=== PATIENT | female | born 1940 | race Caucasian/White ===

== ENCOUNTER 2022-12-17 02:30 | Inpatient (IN) | payer MEDICARE ==
--- NOTE | 2022-12-17 03:06 | ED ---
General Adult HPI - General Chief complaint: Dizziness Stated complaint: Dizziness Time Seen by Provider: 12/17/22 02:36 Source: patient, RN notes reviewed, old records reviewed Mode of arrival: EMS Limitations: altered mental status - History of Present Illness Initial comments: 82-year-old female presents for evaluation of dizziness. The patient states that she had felt lightheaded while getting into bed. She is ambulatory with a walker. No recent fall. She denies chest pain. She does report chronic dyspnea and history of oxygen dependent COPD. She wears 2 L of home oxygen. According to halfway staff she was hypoxic and is currently wearing 5 L. She denies chest pain. Denies abdominal pain. Denies fever. No vomiting or diarrhea. No headache. Patient is somewhat of a poor historian. - Related Data Allergies Allergy/AdvReac Type Severity Reaction Status Date / Time alendronate sodium Allergy Unknown Verified 12/17/22 02:45 Penicillins Allergy Unknown Verified 12/17/22 02:45 Review of Systems ROS Statement: Those systems with pertinent positive or pertinent negative responses have been documented in the HPI. ROS Other: All systems not noted in ROS Statement are negative. Past Medical History Past Medical History: COPD, Dementia, Hyperlipidemia, Rheumatoid Arthritis (RA) Past Surgical History: Hysterectomy, Joint Replacement Additional Past Surgical History / Comment(s): R knee Past Psychological History: Depression Smoking Status: Former smoker Past Alcohol Use History: None Reported Past Drug Use History: None Reported General Exam General appearance: alert, in no apparent distress Head exam: Present: atraumatic, normocephalic Eye exam: Present: normal appearance, PERRL ENT exam: Present: normal exam Neck exam: Present: normal inspection. Absent: tenderness, meningismus Respiratory exam: Present: rhonchi, decreased breath sounds. Absent: respiratory distress Cardiovascular Exam: Present: regular rate, normal rhythm GI/Abdominal exam: Present: soft. Absent: distended, tenderness, guarding Extremities exam: Present: normal inspection Neurological exam: Present: alert. Absent: motor sensory deficit Psychiatric exam: Present: normal affect, normal mood Skin exam: Present: warm, dry, intact. Absent: cyanosis, diaphoretic Course Vital Signs 12/17/22 12/17/22 02:38 03:14 Temperature 98.2 F Pulse Rate 57 L Respiratory 16 Rate Blood Pressure 114/62 O2 Sat by Pulse 90 L Oximetry Medical Decision Making - Medical Decision Making Was pt. sent in by a medical professional or institution ([facility], [facility], urgent care, hospital, or halfway...) When possible be specific @ -No Did you speak to anyone other than the patient for history (EMS, parent, family, police, friend...)? What history was obtained from this source @ -No Did you review nursing and triage notes (agree or disagree)? Why? @ -I reviewed and agree with nursing and triage notes Were old charts reviewed (outside hosp., previous admission, EMS record, old EKG, old radiological studies, urgent care reports/EKG's, halfway records)? Report findings @ -[No old charts available for review Differential Diagnosis (chest pain, altered mental status, abdominal pain women, abdominal pain men, vaginal bleeding, weakness, fever, dyspnea, syncope, headache, dizziness, GI bleed, back pain, seizure, CVA, palpatations, mental health, musculoskeletal)? @ -Differential Dyspnea: Coronary syndrome, arrhythmia, tamponade, asthma, COPD, pulmonary embolism, pneumonia, pneumothorax, pulmonary effusion, anaphylaxis, diabetic ketoacidosis, flailed chest, pulmonary contusion, diaphragmatic rupture, anemia, neuromuscular, this is not meant to be an all-inclusive list. EKG interpreted by me (3pts min.). @ -EKG: Sinus bradycardia rate of 56, MI interval 172, QRS duration 110, QTC 455, no ST segment elevation. X-rays interpreted by me (1pt min.). @Chest x-ray showing predominantly left lower lobe opacity, concern for pneumonia CT interpreted by me (1pt min.). @ -None done U/S interpreted by me (1pt. min.). @ -None done What testing was considered but not performed or refused? (CT, X-rays, U/S, labs)? Why? @ -None What meds were considered but not given or refused? Why? @ -None Did you discuss the management of the patient with other professionals (professionals i.e. [facility], [facility], lab, RT, psych nurse, manager social media, lawyer real estate, teacher, commanding officer motorized squad, case folder)? Give summary @ -[Dr. Santana Was smoking cessation discussed for >3mins.? @ -No Was critical care preformed (if so, how long)? @ -No Were there social determinants of health that impacted care today? How? (Homelessness, low income, unemployed, alcoholism, drug addiction, transportation, low edu. Level, literacy, decrease access to med. care, correction, rehab)? @ -No Was there de-escalation of care discussed even if they declined (Discuss DNR or withdrawal of care, Hospice)? DNR status @ -[DO NOT RESUSCITATE What co-morbidities impacted this encounter? (DM, HTN, Smoking, COPD, CAD, Can cer, CVA, ARF, Chemo, Hep., AIDS, mental health diagnosis, sleep apnea, morbid obesity)? @ -[COPD, hypertension Was patient admitted / discharged? Hospital course, mention meds given and route, prescriptions, significant lab abnormalities, going to OR and other pertinent info. @ -[82-year-old female presenting with dizziness, hypoxia. Patient has bilateral rhonchi on auscultation she has an increase in oxygen demand. X-ray is interpreted as possible CHF by suspect this is more consistent with developing ammonia. Patient started on antibiotics, blood cultures obtained. She's also given steroids, albuterol, Atrovent. She has a minor leukocytosis. She has a negative troponin, negative BNP. Patient is a DO NOT RESUSCITATE Undiagnosed new problem with uncertain prognosis? @ -No Drug Therapy requiring intensive monitoring for toxicity (Heparin, Nitro, Insulin, Cardizem)? @ -No Were any procedures done? @ -No Diagnosis/symptom? @ Pneumonia, COPD Acute, or Chronic, or Acute on Chronic? @ -Acute on chronic Uncomplicated (without systemic symptoms) or Complicated (systemic symptoms)? @ -[Complicated Side effects of treatment? @ -No Exacerbation, Progression, or Severe Exacerbation? @ -No Poses a threat to life or bodily function? How? (Chest pain, USA, OR, pneumonia, PE, COPD, DKA, ARF, appy, cholecystitis, CVA, Diverticulitis, Homicidal, Suicidal, threat to staff... and all critical care pts) @ -[Yes, pneumonia, sepsis - Lab Data Result diagrams: 12/17/22 03:08 12/17/22 03:08 Lab Results 12/17/22 12/17/22 12/17/22 Range/Units 03:08 03:08 03:08 WBC 11.2 H (3.8-10.6) k/uL RBC 3.82 (3.80-5.40) m/uL Hgb 11.7 (11.4-16.0) gm/dL Hct 36.6 (34.0-46.0) % MCV 95.9 (80.0-100.0) fL MCH 30.6 (25.0-35.0) pg MCHC 31.9 (31.0-37.0) g/dL RDW 14.9 (11.5-15.5) % Plt Count 340 (150-450) k/uL MPV 7.7 Neutrophils % 63 % Lymphocytes % 12 % Monocytes % 12 % Eosinophils % 10 % Basophils % 1 % Neutrophils # 7.0 (1.3-7.7) k/uL Lymphocytes # 1.3 (1.0-4.8) k/uL Monocytes # 1.3 H (0-1.0) k/uL Eosinophils # 1.1 H (0-0.7) k/uL Basophils # 0.1 (0-0.2) k/uL PT 10.7 (9.0-12.0) sec INR 1.0 (<1.2) APTT 20.2 L (22.0-30.0) sec VBG pH (7.31-7.41) VBG pCO2 (37-51) mmHg VBG HCO3 (24-28) mmol/L Sodium 136 L (137-145) mmol/L Potassium 3.3 L (3.5-5.1) mmol/L Chloride 98 (98-107) mmol/L Carbon Dioxide 31 H (22-30) mmol/L Anion Gap 7 mmol/L BUN 22 H (7-17) mg/dL Creatinine 0.89 (0.52-1.04) mg/dL Est GFR (CKD-EPI)AfAm 71 (>60 ml/min/1.73 sqM) Est GFR (CKD-EPI)NonAf 61 (>60 ml/min/1.73 sqM) Glucose 104 H (74-99) mg/dL Plasma Lactic Acid Tha (0.7-2.0) mmol/L Calcium 8.7 (8.4-10.2) mg/dL Magnesium 2.1 (1.6-2.3) mg/dL Total Bilirubin 0.4 (0.2-1.3) mg/dL AST 26 (14-36) U/L ALT 22 (4-34) U/L Alkaline Phosphatase 107 (38-126) U/L Troponin I (0.000-0.034) ng/mL NT-Pro-B Natriuret Pep 321 pg/mL Total Protein 6.1 L (6.3-8.2) g/dL Albumin 3.1 L (3.5-5.0) g/dL 12/17/22 12/17/22 12/17/22 Range/Units 03:08 03:08 03:09 WBC (3.8-10.6) k/uL RBC (3.80-5.40) m/uL Hgb (11.4-16.0) gm/dL Hct (34.0-46.0) % MCV (80.0-100.0) fL MCH (25.0-35.0) pg MCHC (31.0-37.0) g/dL RDW (11.5-15.5) % Plt Count (150-450) k/uL MPV Neutrophils % % Lymphocytes % % Monocytes % % Eosinophils % % Basophils % % Neutrophils # (1.3-7.7) k/uL Lymphocytes # (1.0-4.8) k/uL Monocytes # (0-1.0) k/uL Eosinophils # (0-0.7) k/uL Basophils # (0-0.2) k/uL PT (9.0-12.0) sec INR (<1.2) APTT (22.0-30.0) sec VBG pH 7.41 (7.31-7.41) VBG pCO2 49 (37-51) mmHg VBG HCO3 30 H (24-28) mmol/L Sodium (137-145) mmol/L Potassium (3.5-5.1) mmol/L Chloride (98-107) mmol/L Carbon Dioxide (22-30) mmol/L Anion Gap mmol/L BUN (7-17) mg/dL Creatinine (0.52-1.04) mg/dL Est GFR (CKD-EPI)AfAm (>60 ml/min/1.73 sqM) Est GFR (CKD-EPI)NonAf (>60 ml/min/1.73 sqM) Glucose (74-99) mg/dL Plasma Lactic Acid Tha 1.5 (0.7-2.0) mmol/L Calcium (8.4-10.2) mg/dL Magnesium (1.6-2.3) mg/dL Total Bilirubin (0.2-1.3) mg/dL AST (14-36) U/L ALT (4-34) U/L Alkaline Phosphatase (38-126) U/L Troponin I <0.012 (0.000-0.034) ng/mL NT-Pro-B Natriuret Pep pg/mL Total Protein (6.3-8.2) g/dL Albumin (3.5-5.0) g/dL Disposition Clinical Impression: COPD (chronic obstructive pulmonary disease), Pneumonia Disposition: ADMITTED IP TO THIS HOSP Condition: Stable Is patient prescribed a controlled substance at d/c from ED?: No Referrals: None,Stated [Primary Care Provider] - 1-2 days Time of Disposition: 05:02
[2022-12-17 03:27] LABS: VBG PH 7.41 (7.31-7.41)
[2022-12-17 03:36] LABS: ALT 22 U/L (4-34); AST 26 U/L (14-36); African American GFR (CKD) 71 (>60 ml/min/1.73 sqM); Albumin 3.1 g/dL (3.5-5.0); Alkaline Phosphatase 107 U/L (38-126); Anion Gap 7 mmol/L; Blood Urea Nitrogen 22 mg/dL (7-17); Calcium 8.7 mg/dL (8.4-10.2); Carbon Dioxide 31 mmol/L (22-30); Chloride 98 mmol/L (98-107); Glucose 104 mg/dL (74-99); Magnesium 2.1 mg/dL (1.6-2.3); Non-African American GFR(CKD) 61 (>60 ml/min/1.73 sqM); Potassium 3.3 mmol/L (3.5-5.1); Sodium 136 mmol/L (137-145); Total Bilirubin 0.4 mg/dL (0.2-1.3); Total Protein 6.1 g/dL (6.3-8.2)
[2022-12-17 03:44] LABS: NT-Pro-B-Type Natriuretic Pept 321 pg/mL
[2022-12-17 03:59] LABS: Basophils # (A) 0.1 k/uL (0-0.2); Basophils % (A) 1 %; Eosinophils # (A) 1.1 k/uL (0-0.7); Eosinophils % (A) 10 %; HCT 36.6 % (34.0-46.0); HGB 11.7 gm/dL (11.4-16.0); Lymphocytes # (A) 1.3 k/uL (1.0-4.8); Lymphocytes % (A) 12 %; MCH 30.6 pg (25.0-35.0); MCHC 31.9 g/dL (31.0-37.0); MCV 95.9 fL (80.0-100.0); Mean Platelet Volume 7.7; Monocytes # (A) 1.3 k/uL (0-1.0); Monocytes % (A) 12 %; Neutrophils % (A) 63 %; Platelet Count 340 k/uL (150-450); RBC 3.82 m/uL (3.80-5.40); RDW 14.9 % (11.5-15.5); WBC 11.2 k/uL (3.8-10.6)
[2022-12-17 04:15] LABS: Prothrombin Time 10.7 sec (9.0-12.0)
[2022-12-17 04:23] LABS: Partial Thromboplastin Time 20.2 sec (22.0-30.0)
--- NOTE | 2022-12-17 04:26 | XR ---
EXAM: XR Chest, 2 Views CLINICAL HISTORY: ITS.REASON XR Reason: Weakness TECHNIQUE: Frontal and lateral views of the chest. COMPARISON: No relevant prior studies available. IMPRESSION: Cardiomegaly. Mild vascular congestion. Bibasilar opacities. Possible trace left effusion
[2022-12-17] MEDS ORDERED: AZITHROMYCIN 500 MG in SODIUM CHLORIDE 0.9% 250 ML IVPB STA (04:49)
[2022-12-17] MEDS ORDERED: ACETAMINOPHEN TAB 325 MG TAB PO PRN (04:58)
[2022-12-17] MEDS ORDERED: NALOXONE 0.4 MG/ML 1 ML VIAL IV PRN (04:58)
[2022-12-17] MEDS ORDERED: IPRATROPIUM-ALBUTEROL 3 ML NEB INHALATION STA (04:58)
[2022-12-17] MEDS ORDERED: ALBUTEROL NEBULIZED 2.5 MG/3 ML INHALATION STA (04:58)
--- NOTE | 2022-12-17 06:42 | P.HPIM ---
History of Present Illness H&P Date: 12/17/22 Chief Complaint: hypoxemia 82 year old female with chronic hypoxic respiratory failure denies history of COPD , or chf . denies taking any meds, denies using any inhalers she is at a correction, today her RN found her weak and dizzy, called EMS and brought her to the hospital as her oxygen was low on her regular 2 L NC, and required 5 L NC. she reports coughing for few days , denies any phlegm or hemoptysis she denies fever, chills, chest pain , nausea vomiting, changes in urinary or bowel habits, abd pain , falls . patient provides very limited history , but claims to be healthy and does not take any meds. she uses a walker to ambulate denies smoking drugs or alcohol review of systems Pertinent positives as noted in HPI. All other systems were reviewed and are negative on exam Constitutional: No acute distress, conversant, pleasant Eyes: Anicteric sclerae, moist conjunctiva, Pupils equal round reactive to light ENMT: NC/AT Oropharynx clear, no erythema, or exudates Neck: Supple, no masses, or JVD No carotid bruits No thyromegaly Lungs: good breath sounds , basal rales , no wheezing Clear to percussion Normal respiratory effort, no accessory muscle use Cardiovascular: Heart regular in rate and rhythm, No murmurs, gallops, or rubs No peripheral edema Abdominal: Soft Nontender, no guarding, rebound or rigidity Abdomen moving with respiration Normoactive bowel sounds No hepatomegaly, No splenomegaly No palpable mass No abdominal wall hernia noted Skin: Normal temperature, tone, texture, turgor Extremities: No digital cyanosis No clubbing Pedal pulses intact and symmetrical Radial pulses intact and symmetrical No calf tenderness Psychiatric: Alert and oriented to person, place Neuro Muscles Strength 4/5 in all 4 extremities Sensation to light touch grossly present throughout Cranial nerves II-XII grossly intact Lymphatics: no palpable cervical or supraclavicular lymph nodes Past Medical History Past Medical History: COPD, Dementia, Hyperlipidemia, Rheumatoid Arthritis (RA) Past Surgical History: Hysterectomy, Joint Replacement Additional Past Surgical History / Comment(s): R knee Past Psychological History: Depression Smoking Status: Former smoker Past Alcohol Use History: None Reported Past Drug Use History: None Reported Medications and Allergies Allergies Allergy/AdvReac Type Severity Reaction Status Date / Time alendronate sodium Allergy Unknown Verified 12/17/22 02:45 Penicillins Allergy Unknown Verified 12/17/22 02:45 Physical Exam Vitals: Vital Signs Temp Pulse Resp BP Pulse Ox 12/17/22 06:04 66 12/17/22 05:49 63 91 L 12/17/22 05:17 98 F 68 24 111/66 90 L 12/17/22 03:14 98.2 F 12/17/22 02:38 57 L 16 114/62 90 L Intake and Output 12/16/22 12/16/22 12/17/22 14:59 22:59 06:59 Other: Weight 90.718 kg Results CBC & Chem 7: 12/17/22 03:08 12/17/22 03:08 Labs: Abnormal Lab Results - Last 24 Hours (Table) 12/17/22 12/17/22 12/17/22 Range/Units 03:08 03:08 03:08 WBC 11.2 H (3.8-10.6) k/uL Monocytes # 1.3 H (0-1.0) k/uL Eosinophils # 1.1 H (0-0.7) k/uL APTT 20.2 L (22.0-30.0) sec VBG HCO3 (24-28) mmol/L Sodium 136 L (137-145) mmol/L Potassium 3.3 L (3.5-5.1) mmol/L Carbon Dioxide 31 H (22-30) mmol/L BUN 22 H (7-17) mg/dL Glucose 104 H (74-99) mg/dL Total Protein 6.1 L (6.3-8.2) g/dL Albumin 3.1 L (3.5-5.0) g/dL 12/17/22 Range/Units 03:09 WBC (3.8-10.6) k/uL Monocytes # (0-1.0) k/uL Eosinophils # (0-0.7) k/uL APTT (22.0-30.0) sec VBG HCO3 30 H (24-28) mmol/L Sodium (137-145) mmol/L Potassium (3.5-5.1) mmol/L Carbon Dioxide (22-30) mmol/L BUN (7-17) mg/dL Glucose (74-99) mg/dL Total Protein (6.3-8.2) g/dL Albumin (3.5-5.0) g/dL Assessment and Plan Assessment: 10o year old female brought in due to being dizzy and hypoxic , I discussed the case with ED doc and I accepte dthe admission for acute community acquired pneumonia with hypoxemia with anticipated length of stay > 2 midnights acute hypoxic respiratory failure acute Community acquired penumonia CXR showed bilateral basal opacities WBC elevated 11.2 no fever follow up cultures rocephin 2 gms IVPB daily azithromycin 250 mg po daily (s/p one time 500 mg ) tylenol for fever supplemental oxygen as needed Pro BNP unremarkable Trops negative hypokalemia K 3.3 , replace and follow up levels renal fucntion BUN 22 , cr 0.89 No code DVT PPX heparin sc tid
[2022-12-17] MEDS ORDERED: POTASSIUM CHLORIDE ER 20 MEQ TAB.ER PO STA (06:51)
[2022-12-17] MEDS ORDERED: methylPREDNISolone SOD SUCCI 125 MG/2 ML VIAL IV SCH (08:00)
[2022-12-17] MEDS: HEPARIN SODIUM,PORCINE/PF 5,000 UNIT/0.5 ML SYRINGE SQ SCH ×3 (08:19→23:47)
--- NOTE | 2022-12-17 10:48 | CA ---
Transthoracic Echo Report Name: Ros Sweeney Age: 82 Gender: F : 1940 Exam Date: 12/17/2022 09:34 Exam Location: [facility] Ht (in): 67 Wt (lb): 200 Ordering Physician: eF Perry MD Attending/Referring Phys: Client Experience Manager Jason Fonseca Procedure CPT: Indications: Cardiomegaly Cardiac Hx: Technical Quality: Fair Contrast 1: Total Dose (mL): Contrast 2: Total Dose (mL): MEASUREMENTS (Male / Female) Normal Values 2D ECHO LV Diastolic Diameter PLAX 5.7 cm 4.2 - 5.9 / 3.9 - 5.3 cm LV Systolic Diameter PLAX 3.0 cm IVS Diastolic Thickness 1.1 cm 0.6 - 1.0 / 0.6 - 0.9 cm LVPW Diastolic Thickness 1.5 cm 0.6 - 1.0 / 0.6 - 0.9 cm LV Relative Wall Thickness 0.4 RV Internal Dim ED PLAX 3.4 cm LVOT Diameter 2.0 cm Aortic Root Diameter 2.5 cm LA Systolic Diameter LX 3.4 cm 3.0 - 4.0 / 2.7 - 3.8 cm LV Diastolic Volume MOD BP 63.9 cm??? 67 - 155 / 56 - 104 cm??? LV Systolic Volume MOD BP 21.9 cm??? 22 - 58 / 19 - 49 cm??? LV Ejection Fraction MOD BP 65.7 % >= 55 % LV Cardiac Index MOD BP 1320.1 cm???/min???m??? LV Diastolic Volume MOD 4C 71.5 cm??? LV Systolic Volume MOD 4C 26.6 cm??? LV Ejection Fraction MOD 4C 62.9 % LV Cardiac Index MOD 4C 1413.5 cm???/min???m??? LV Diastolic Length 4C 8.2 cm LV Systolic Length 4C 7.0 cm LV Diastolic Volume MOD 2C 50.9 cm??? LV Systolic Volume MOD 2C 17.9 cm??? LV Ejection Fraction MOD 2C 64.8 % LV Cardiac Index MOD 2C 1037.0 cm???/min???m??? LV Diastolic Length 2C 7.2 cm LV Systolic Length 2C 6.6 cm LA Volume 39.6 cm??? 18 - 58 / 22 - 52 cm??? Ascending Aorta Diameter 2.9 cm DOPPLER AV Peak Velocity 181.2 cm/s AV Peak Gradient 13.1 mmHg AI Peak Velocity 348.9 cm/s AI Peak Gradient 48.7 mmHg AI Pressure Half Time 542.3 ms LVOT Peak Velocity 113.6 cm/s LVOT Peak Gradient 5.2 mmHg AV Area Cont Eq pk 1.9 cm??? MV Peak Velocity 148.9 cm/s MV Peak Gradient 8.9 mmHg MV Mean Velocity 63.4 cm/s MV Mean Gradient 2.1 mmHg MV Velocity Time Integral 51.1 cm MR Peak Velocity 486.8 cm/s MR Peak Gradient 94.8 mmHg Mitral E Point Velocity 82.3 cm/s Mitral A Point Velocity 141.0 cm/s Mitral E to A Ratio 0.6 MV Deceleration Time 242.5 ms MV E' Velocity 6.4 cm/s Mitral E to MV E' Ratio 12.8 TR Peak Velocity 283.9 cm/s TR Peak Gradient 32.2 mmHg Right Ventricular Systolic Press 37.2 mmHg PV Peak Velocity 102.5 cm/s PV Peak Gradient 4.2 mmHg FINDINGS Left Ventricle Normal left ventricular wall motion. Left ventricular cavity size normal. Left ventricular ejection fraction is estimated at 55-60 %. Mildly increased left ventricular wall thickness. Right Ventricle Normal right ventricular size and function. Right Atrium Mild right atrial dilatation. Left Atrium Mildly increased left atrial area. Mitral Valve Structurally normal mitral valve. Mild MR. Aortic Valve Aortic valve not well visualized. Mild AI. No aortic stenosis. Tricuspid Valve Tricuspid valve not well visualized. Mild TR. Pulmonic Valve Pulmonic valve not well visualized. No pulmonic regurgitation. Pericardium Normal pericardium. Aorta Normal size aortic root and proximal ascending aorta. CONCLUSIONS Technically difficult study. Normal left ventricle size and systolic function Mild mitral, aortic and tricuspid regurgitation with mild pulmonary hypertension Previewed by: Dr. Nikia Calixto MD (Electronically Signed) Final Date: 17 December 2022 10:47
[2022-12-17] MEDS ORDERED: IPRATROPIUM-ALBUTEROL 3 ML NEB INHALATION PRN (11:04)
--- NOTE | 2022-12-17 11:04 | P.CNPUL ---
History of Present Illness Consult date: 12/17/22 Requesting physician: Keny Seth Reason for consult: dyspnea, cough, pneumonia, abnormal CXR/CT Chief complaint: Cough and shortness of breath. History of present illness: Pulmonary consult dated 12/17/2022. 82-year-old female who was seen in the emergency department, on December 17, with complaints of dizziness, and mental status changes. She apparently felt lightheaded, and just wasn't feeling herself. She apparently does wear oxygen at 2 L, at the assisted living home that she resides at. The patient was evaluated in the emergency room, and was thought to possibly have pneumonia. She's currently on 5 L of oxygen. She's not receiving any IV fluids. Her primary care provider is Dr. Keny Seth. The patient is not a particularly good historian. She apparently has a history of COPD, dementia, hyperlipidemia, and rheumatoid arthritis, as well as depression. She was a former smoker. White count 11.2, hemoglobin 11.7, hematocrit 36.6, with a normal platelet count. Venous blood gas shows a pCO2 of 49, and a pH is 7.41. Sodium 136, potassium 3.3, chlorides 98, CO2 31, BUN 22, creatinine 0.89. N-terminal proBNP is 321. Troponin was normal. Chest x-ray shows some bibasilar opacities. The chest x- ray in my opinion could be consistent with either pneumonia and/or mild fluid overload. The patient was started on azithromycin and Rocephin. A pro- calcitonin level was only. Review of Systems REVIEW OF SYSTEMS: CONSTITUTIONAL: Weakness, dizziness, lightheadedness. NEUROLOGIC: Mental status changes. HEENT: [ Negative.] CARDIAC: [Negative.] PULMONARY: Cough and shortness of breath. GI: [Negative.] : [Negative.] RHEUMATOLOGIC: [ Negative.] IMMUNOLOGIC: [ Negative.] ENDOCRINE: [Negative. ] DERMATOLOGIC: [Negative.] Past Medical History Past Medical History: COPD, Dementia, Hyperlipidemia, Rheumatoid Arthritis (RA) History of Any Multi-Drug Resistant Organisms: None Reported Past Surgical History: Hysterectomy, Joint Replacement Additional Past Surgical History / Comment(s): R knee Past Anesthesia/Blood Transfusion Reactions: No Reported Reaction Past Psychological History: Depression Smoking Status: Former smoker Past Alcohol Use History: None Reported Past Drug Use History: None Reported Medications and Allergies Allergies Allergy/AdvReac Type Severity Reaction Status Date / Time alendronate sodium Allergy Unknown Verified 12/17/22 02:45 Penicillins Allergy Unknown Verified 12/17/22 02:45 Physical Exam Osteopathic Statement: *. No significant issues noted on an osteopathic struct ural exam other than those noted in the History and Physical/Consult. Vitals: Vital Signs Temp Pulse Pulse Resp BP BP Pulse Ox 12/17/22 07:59 74 20 124/64 90 L 12/17/22 07:10 91.0 F L 67 18 87/53 91 L 12/17/22 06:04 66 12/17/22 05:49 63 91 L 12/17/22 05:17 98 F 68 24 111/66 90 L 12/17/22 03:14 98.2 F 12/17/22 02:38 57 L 16 114/62 90 L Intake and Output 12/16/22 12/17/22 12/17/22 22:59 06:59 14:59 Other: Voiding Method Toilet Diaper # Voids 1 Weight 90.718 kg No acute distress, poor historian, currently on oxygen at 5 L. HEENT examination is grossly unremarkable. Neck supple. Full range of motion. No adenopathy thyromegaly or neck vein distention. Cardiovascular examination reveals regular rhythm rate. S1-S2 normal. No S3 or S4. No discernible murmur noted. Heart rate 74 bpm. Lungs reveal scattered bilateral rhonchi. No wheezes. No crackles. Breath sounds equal. Saturations are in the low 90s, on 5 L. Abdomen soft bowel sounds are heard. No masses or tenderness. Extremities are intact. No cyanosis clubbing or edema. Skin is without rash or lesion. Neurologic examination is brief but nonfocal. Results - Laboratory Findings CBC and BMP: 12/17/22 03:08 12/17/22 03:08 PT/INR, D-dimer PT 10.7 sec (9.0-12.0) 12/17/22 03:08 INR 1.0 (<1.2) 12/17/22 03:08 Abnormal lab findings: Abnormal Labs 12/17/22 12/17/22 12/17/22 03:08 03:08 03:08 WBC 11.2 H Monocytes # 1.3 H Eosinophils # 1.1 H APTT 20.2 L VBG HCO3 Sodium 136 L Potassium 3.3 L Carbon Dioxide 31 H BUN 22 H Glucose 104 H Total Protein 6.1 L Albumin 3.1 L 12/17/22 03:09 WBC Monocytes # Eosinophils # APTT VBG HCO3 30 H Sodium Potassium Carbon Dioxide BUN Glucose Total Protein Albumin - Diagnostic Findings Chest x-ray: image reviewed Assessment and Plan Assessment: Lightheadedness, dizziness, cough, and shortness of breath, possibly related to pneumonia. Vague history of COPD. Prior history of tobacco use. Chronic hypoxemic respiratory failure, on home O2 at 2 L. History of dementia. History of hyperlipidemia. History of rheumatoid arthritis. History of depression. Plan: Plan dated 12/17/2022. The patient is seen, interviewed, and examined. Unfortunately, the patient is not a particularly good historian. Most of the information is gleaned from the ER cheo. The patient was started on azithromycin and Rocephin for possible pneumonia. A pro-calcitonin level has been ordered. I will as some breathing treatments. The patient's on oxygen at 5 L. Prognosis is guarded. She is a DO NOT RESUSCITATE patient. Time with Patient: Greater than 30
[2022-12-17] MEDS: IPRATROPIUM-ALBUTEROL 3 ML NEB INHALATION SCH ×3 (12:45→21:30)
[2022-12-17 17:31] LABS: Appearance,Urine Clear (Clear); Bilirubin,Urine Negative (Negative); Blood,Urine Negative (Negative); Color,Urine Yellow; Glucose,Urine (UA) Negative (Negative); Ketones,Urine Negative (Negative); Leukocyte Esterase,Urine Trace (Negative); Nitrite,Urine Negative (Negative); PH, Urine 5.5 (5.0-8.0); Protein,Urine Trace (Negative); Urobilinogen,Urine <2.0 mg/dL (<2.0)
[2022-12-17 17:58] LABS: WBC,Urine 7 /hpf (0-5)
[2022-12-17 17:59] LABS: RBC,Urine 0 /hpf (0-5); Squamous Epithelial Cell,Urine 2 /hpf (0-4)
[2022-12-17 18:00] LABS: Bacteria,Urine Few /hpf; Mucus,Urine Few /hpf
[2022-12-18] MEDS ORDERED: QUEtiapine 25 MG TAB PO STA (03:38)
[2022-12-18] MEDS ORDERED: FUROSEMIDE 10 MG/ML 4 ML VIAL IV STA (08:49)
[2022-12-18] MEDS: HEPARIN SODIUM,PORCINE/PF 5,000 UNIT/0.5 ML SYRINGE SQ SCH ×3 (08:58→23:24)
[2022-12-18] MEDS ORDERED: AZITHROMYCIN 250 MG TAB PO SCH (09:00)
[2022-12-18] MEDS: IPRATROPIUM-ALBUTEROL 3 ML NEB INHALATION SCH ×4 (09:50→21:44)
--- NOTE | 2022-12-18 13:38 | P.PN ---
Subjective Progress Note Date: 12/18/22 82-year-old female who was seen in the emergency department, on December 17, with complaints of dizziness, and mental status changes. She apparently felt lightheaded, and just wasn't feeling herself. She apparently does wear oxygen at 2 L, at the assisted living home that she resides at. The patient was ev aluated in the emergency room, and was thought to possibly have pneumonia. She's currently on 5 L of oxygen. She's not receiving any IV fluids. Her primary care provider is Dr. Keny Seth. The patient is not a particularly good historian. She apparently has a history of COPD, dementia, hyperlipidemia, and rheumatoid arthritis, as well as depression. She was a former smoker. White count 11.2, hemoglobin 11.7, hematocrit 36.6, with a normal platelet count. Venous blood gas shows a pCO2 of 49, and a pH is 7.41. Sodium 136, potassium 3.3, chlorides 98, CO2 31, BUN 22, creatinine 0.89. N-terminal proBNP is 321. Troponin was normal. Chest x-ray shows some bibasilar opacities. The chest x- ray in my opinion could be consistent with either pneumonia and/or mild fluid overload. The patient was started on azithromycin and Rocephin. A pro- calcitonin level was only. The patient is seen today 12/18/2022 in follow-up on the regular medical floor. She is maintaining O2 saturations in the 90s on 3 L/m per nasal cannula. Still with some scattered rhonchi. Blood culture reveals no growth to date. Pro- calcitonin 0.09. Currently on ceftriaxone and azithromycin. Continued on DuoNeb inhalations. Heparin for DVT prophylaxis. Objective - Vital Signs Vital signs: Vital Signs Temp 98.6 F 12/18/22 07:05 Pulse 82 12/18/22 13:02 Resp 20 12/18/22 07:05 BP 94/58 12/18/22 07:05 Pulse Ox 93 L 12/18/22 09:50 FiO2 Intake & Output 12/17/22 12/18/22 12/18/22 18:59 06:59 18:59 Output Total 2150 Balance -2150 Output: Urine 2150 Other: Voiding Method Toilet Toilet Toilet Diaper Diaper Diaper # Voids 2 2 1 # Bowel Movements 1 - Exam GENERAL EXAM: Alert, doesn't 82-year-old female, on 3 L nasal cannula, comfort able in no apparent distress. HEAD: Normocephalic. EYES: Normal reaction of pupils, equal size. NOSE: Clear with pink turbinates. THROAT: No erythema or exudates. NECK: No masses, no JVD. CHEST: No chest wall deformity. LUNGS: Equal air entry with bilateral scattered rhonchi. CVS: S1 and S2 normal with no audible murmur, regular rhythm. ABDOMEN: No hepatosplenomegaly, normal bowel sounds, no guarding or rigidity. SPINE: No scoliosis or deformity SKIN: No rashes CENTRAL NERVOUS SYSTEM: No focal deficits, tone is normal in all 4 extremities. EXTREMITIES: There is no peripheral edema. No clubbing, no cyanosis. Peripheral pulses are intact. - Labs CBC & Chem 7: 12/17/22 03:08 12/17/22 03:08 Labs: Abnormal Lab Results - Last 24 Hours (Table) 12/17/22 Range/Units 02:50 Urine Protein Trace H (Negative) Ur Leukocyte Esterase Trace H (Negative) Urine WBC 7 H (0-5) /hpf Urine Bacteria Few H (None) /hpf Urine Mucus Few H (None) /hpf Microbiology - Last 24 Hours (Table) 12/17/22 03:00 Blood Culture - Preliminary Blood 12/17/22 02:45 Blood Culture - Preliminary Blood Assessment and Plan Assessment: Lightheadedness, dizziness, cough, and shortness of breath, possibly related to bronchitis. Procalcitonin 0.09. Antibiotics discontinued. Vague history of COPD. Prior history of tobacco use. Chronic hypoxemic respiratory failure, on home O2 at 2 L. History of dementia. History of hyperlipidemia. History of rheumatoid arthritis. History of depression. Plan: The patient was seen and evaluated Medications and labs reviewed Procalcitonin within normal limits Antibiotics discontinued Currently stable and on 3 L Continue bronchodilators We will continue to follow I have personally seen and examined the patient, performed the documentation and the assessment and plan as written. Number of minutes spent on the visit: 10.
--- NOTE | 2022-12-18 14:58 | P.PN ---
Subjective Progress Note Date: 12/18/22 Patient reports improvement in breathing today. Pro-calcitonin is 0.09. Gen: awake, alert HEENT: normocephalic, atraumatic, good hearing acuity, moist mucous membranes Resp: good air exchange, breathing comfortably with no accessory muscle use CVS: good distal perfusion x 4, GI: soft, NTTP, ND : no SPT, no CVAT, costello catheter not present MSK: no pitting edema, no clubbing Neuro: non-focal, moving all extremities Psych: cooperative, euthymic mood Hospital course: 82-year-old woman with medical history of chronic hypoxic respiratory failure on 2 L of oxygen presented for evaluation of dyspnea, generalized weakness. Patient is a poor historian due to underlying poor insight into medical care, and is a long-term care resident. In the emergency room, patient was afebrile, 114/62, heart rate 57, 90% on 5 L nasal cannula. CBC demonstrated leukocytosis to 11.2, otherwise unremarkable. Basic metabolic panel showed hyponatremia to 136, hypokalemia to 3.3, otherwise unremarkable. Liver function tests showed low total albumin of 3.1 and protein of 6.1. UA shows trace protein, trace leukocyte esterase, 7 white blood cells, few bacteria, few mucus. Chest x-ray showed cardiomegaly with bilateral increased pulmonary vascularity, with possible pneumonia in the left lower lobe. EKG shows sinus bradycardia with sinus arrhythmia, left axis deviation, no signs of ischemia. Case discussed with emergency room N decision was made to admit the patient to the hospital for further evaluation. Assessment: Acute on chronic hypoxemic respiratory failure Suspected volume overload, diastolic heart failure Hypokalemia Plan: Today, patient was afebrile, 107/72, heart rate 99, 99% on 3 L nasal cannula No new lab work to review Case discussed with pulmonology, pro-calcitonin was 0.09, discontinue antibiotics Patient was given dose of 40 mg IV Lasix once today Blood cultures reviewed, no growth to date Pulmonology added nebulizers, Simcor Patient is a no code Objective - Vital Signs Vital signs: Vital Signs Temp 98.3 F 12/18/22 13:20 Pulse 99 12/18/22 13:20 Resp 18 12/18/22 13:20 BP 107/72 12/18/22 13:20 Pulse Ox 99 12/18/22 13:20 FiO2 Intake & Output 12/17/22 12/18/22 12/18/22 18:59 06:59 18:59 Output Total 2150 Balance -2149 Output: Urine 0 Other: Voiding Method Toilet Toilet Toilet Diaper Diaper Diaper # Voids 2 2 1 # Bowel Movements 1 - Labs CBC & Chem 7: 12/17/22 03:08 12/17/22 03:08 Labs: Abnormal Lab Results - Last 24 Hours (Table) 12/17/22 Range/Units 02:50 Urine Protein Trace H (Negative) Ur Leukocyte Esterase Trace H (Negative) Urine WBC 7 H (0-5) /hpf Urine Bacteria Few H (None) /hpf Urine Mucus Few H (None) /hpf Microbiology - Last 24 Hours (Table) 12/17/22 03:00 Blood Culture - Preliminary Blood 12/17/22 02:45 Blood Culture - Preliminary Blood
[2022-12-18 17:32] LABS: Blood Urea Nitrogen 20.7 mg/dL (9.0-27.0); Calcium 9.3 mg/dL (8.7-10.3); Carbon Dioxide 25.7 mmol/L (21.6-31.8); Chloride 102 mmol/L (96-109); Glucose 106 mg/dL (70-110); Magnesium 2.1 mg/dL (1.5-2.4); Potassium 4.2 mmol/L (3.5-5.5); Sodium 141 mmol/L (135-145)
[2022-12-18 17:56] LABS: HCT 38.7 % (37.2-46.3); HGB 12.2 d/dL (12.0-15.0); MCHC 31.5 d/dL (32.0-37.0); MCV 95.1 FL (80.0-97.0); Mean Platelet Volume 9.8 FL (9.5-12.2); NRBC Per 100 WBC 0 X 10*3/uL (0.00-0.01); Platelet Count 397 X 10*3/uL (140-440); RBC 4.07 X 10*6/uL (4.10-5.20); RDW 15.3 % (11.5-14.5); WBC 11.62 X 10*3/uL (4.50-10.00)
[2022-12-18 18:41] LABS: Neutrophils % (M) 74 %
[2022-12-18 18:51] LABS: Basophils # (M) 0.23 X 10*3/uL (0.00-0.10); Lymphocytes # (M) 1.05 X 10*3/uL (0.90-5.00); Monocytes # (M) 1.05 X 10*3/uL (0.20-1.00)
[2022-12-18] MEDS: SYMBICORT 160-4.5 MCG INHALER INHALATION SCH (21:44)
[2022-12-19] MEDS: HEPARIN SODIUM,PORCINE/PF 5,000 UNIT/0.5 ML SYRINGE SQ SCH (08:20)
[2022-12-19] MEDS: IPRATROPIUM-ALBUTEROL 3 ML NEB INHALATION SCH ×3 (08:38→15:35)
[2022-12-19] MEDS: SYMBICORT 160-4.5 MCG INHALER INHALATION SCH (08:38)
[2022-12-19] MEDS ORDERED: FUROSEMIDE 10 MG/ML 4 ML VIAL IV STA (09:18)
[2022-12-19 13:57] VITALS: BP 109/56; PULSE 90; RESP 16; TEMP 98
[2022-12-19 14:22] LABS: Basophils # (A) 0.08 X 10*3/uL (0.00-0.10); Basophils % (A) 0.7 %; Eosinophils # (A) 0.46 X 10*3/uL (0.04-0.35); Eosinophils % (A) 4.1 %; HCT 38.5 % (37.2-46.3); HGB 12.2 d/dL (12.0-15.0); Lymphocytes # (A) 1.24 X 10*3/uL (0.90-5.00); MCH 30.2 pg (27.0-32.0); MCHC 31.7 d/dL (32.0-37.0); MCV 95.3 FL (80.0-97.0); Mean Platelet Volume 9.6 FL (9.5-12.2); Monocytes # (A) 1.62 X 10*3/uL (0.20-1.00); Monocytes % (A) 14.3 %; NRBC Per 100 WBC 0 X 10*3/uL (0.00-0.01); Neutrophils # (A) 7.86 X 10*3/uL (1.80-7.70); Neutrophils % (A) 69.4 %; Platelet Count 425 X 10*3/uL (140-440); RBC 4.04 X 10*6/uL (4.10-5.20); RDW 15.5 % (11.5-14.5); WBC 11.32 X 10*3/uL (4.50-10.00)
--- NOTE | 2022-12-19 14:29 | P.DS ---
Providers Date of admission: 12/17/22 04:59 Expected date of discharge: 12/19/22 Attending physician: Jessica Santana MD Consults: 12/17/22 08:08 Consult Physician Routine Consulting Provider: Jeremi Solano Consult Reason/Comments: pneumonia Do you want consulting provider notified?: Yes Primary care physician: Stated None Hospital Course: Assessment: Acute on chronic hypoxemic respiratory failure Suspected volume overload, diastolic heart failure Hypokalemia Hospital course: 82-year-old woman with medical history of chronic hypoxic respiratory failure on 2 L of oxygen presented for evaluation of dyspnea, generalized weakness. Patient is a poor historian due to underlying poor insight into medical care, and is a long-term care resident. In the emergency room, patient was afebrile, 114/62, heart rate 57, 90% on 5 L nasal cannula. CBC demonstrated leukocytosis to 11.2, otherwise unremarkable. Basic metabolic panel showed hyponatremia to 136, hypokalemia to 3.3, otherwise unremarkable. Liver function tests showed low total albumin of 3.1 and protein of 6.1. UA shows trace protein, trace leukocyte esterase, 7 white blood cells, few bacteria, few mucus. Chest x-ray showed cardiomegaly with bilateral increased pulmonary vascularity, with possible pneumonia in the left lower lobe. EKG shows sinus bradycardia with sinus arrhythmia, left axis deviation, no signs of ischemia. Case discussed with emergency room N decision was made to admit the patient to the hospital for further evaluation. Pro-calcitonin was low and therefore pneumonia was ruled o ut. Pulmonology consulted, antibiotics were discontinued. Pulmonology started nebulizers for presumed COPD. Patient was also given dose of Lasix. She improved back to baseline oxygen requirement and functional status with these interventions and was discharged with follow-up. I spent 40 minutes coordinating this discharge on 12/19 Gen: awake, alert HEENT: normocephalic, atraumatic, good hearing acuity, moist mucous membranes Resp: good air exchange, breathing comfortably with no accessory muscle use CVS: good distal perfusion x 4, GI: soft, NTTP, ND : no SPT, no CVAT, costello catheter not present MSK: no pitting edema, no clubbing Neuro: non-focal, moving all extremities Psych: cooperative, euthymic mood Patient Condition at Discharge: Good Plan - Discharge Summary Discharge Rx Participant: No New Discharge Prescriptions: New Furosemide [Lasix] 20 mg PO DAILY #30 tablet Continue Loperamide [Imodium] 2 mg PO QID PRN PRN Reason: Diarrhea Cholecalciferol [Vitamin D3 (125 Mcg = 5000 Iu)] 125 mcg PO DAILY Triamterene/Hydrochlorothiazid [Maxzide 37.5-25] 1 tab PO DAILY Thiamine [Vitamin B-1] 100 mg PO DAILY traZODone HCL 150 mg PO HS Pantoprazole Sodium [Protonix] 40 mg PO DAILY Multivitamins, Thera [Multivitamin (formulary)] 1 tab PO DAILY Methotrexate/Pf [Reditrex 25 mg/ml Syringe] 15 mg SQ WE Melatonin 10 mg PO HS Levothyroxine Sodium [Synthroid] 25 mcg PO DAILY Gabapentin [Neurontin] 300 mg PO TID FLUoxetine HCL [PROzac] 40 mg PO DAILY clonazePAM [KlonoPIN] 1 mg PO HS Ciclopirox Olamine [Loprox 0.77% cream] 1 applic TOPICAL DAILY Ipratropium-Albuterol Nebulize [Duoneb 0.5 mg-3 mg/3 ml Soln] 3 ml INHALATION RT-QID rOPINIRole HCL [Requip] 1 mg PO HS PRN PRN Reason: restless legs Acetaminophen Tab [Tylenol] 500 mg PO Q6HR PRN PRN Reason: Pain Or Fever > 100.5 Cyanocobalamin (Vitamin B-12) [Vitamin B-12] 1,000 mcg PO DAILY Rosuvastatin [Crestor] 10 mg PO HS Budesonide-Formot 160-4.5 Mcg [Symbicort 160-4.5 Mcg Inhaler] 2 puff INHALATION RT-BID Rivastigmine Tartrate [Exelon] 3 mg PO BID Folic Acid 1 mg PO HS Fluticasone Nasal [place] [Flonase Nasal [place]] 1 spray EA NOSTRIL BID Famotidine [Pepcid] 20 mg PO W/SUPPER clonazePAM [KlonoPIN] 0.5 mg PO DAILY Cetirizine HCl [Zyrtec] 10 mg PO HS Discontinued Ibuprofen [Motrin Ib] 200 mg PO Q6H PRN PRN Reason: Pain levoFLOXacin 500 mg PO DAILY@1600 Discharge Medication List Acetaminophen Tab [Tylenol] 500 mg PO Q6HR PRN 12/17/22 [History] Budesonide-Formot 160-4.5 Mcg [Symbicort 160-4.5 Mcg Inhaler] 2 puff INHALATION RT-BID 12/17/22 [History] Cetirizine HCl [Zyrtec] 10 mg PO HS 12/17/22 [History] Cholecalciferol [Vitamin D3 (125 Mcg = 5000 Iu)] 125 mcg PO DAILY 12/17/22 [History] Ciclopirox Olamine [Loprox 0.77% cream] 1 applic TOPICAL DAILY 12/17/22 [History] Cyanocobalamin (Vitamin B-12) [Vitamin B-12] 1,000 mcg PO DAILY 12/17/22 [History] FLUoxetine HCL [PROzac] 40 mg PO DAILY 12/17/22 [History] Famotidine [Pepcid] 20 mg PO W/SUPPER 12/17/22 [History] Fluticasone Nasal [place] [Flonase Nasal [place]] 1 spray EA NOSTRIL BID 12/17/22 [History] Folic Acid 1 mg PO HS 12/17/22 [History] Gabapentin [Neurontin] 300 mg PO TID 12/17/22 [History] Ipratropium-Albuterol Nebulize [Duoneb 0.5 mg-3 mg/3 ml Soln] 3 ml INHALATION RT-QID 12/17/22 [History] Levothyroxine Sodium [Synthroid] 25 mcg PO DAILY 12/17/22 [History] Loperamide [Imodium] 2 mg PO QID PRN 12/17/22 [History] Melatonin 10 mg PO HS 12/17/22 [History] Methotrexate/Pf [Reditrex 25 mg/ml Syringe] 15 mg SQ WE 12/17/22 [History] Multivitamins, Thera [Multivitamin (formulary)] 1 tab PO DAILY 12/17/22 [History] Pantoprazole Sodium [Protonix] 40 mg PO DAILY 12/17/22 [History] Rivastigmine Tartrate [Exelon] 3 mg PO BID 12/17/22 [History] Rosuvastatin [Crestor] 10 mg PO HS 12/17/22 [History] Thiamine [Vitamin B-1] 100 mg PO DAILY 12/17/22 [History] Triamterene/Hydrochlorothiazid [Maxzide 37.5-25] 1 tab PO DAILY 12/17/22 [History] clonazePAM [KlonoPIN] 0.5 mg PO DAILY 12/17/22 [History] clonazePAM [KlonoPIN] 1 mg PO HS 12/17/22 [History] rOPINIRole HCL [Requip] 1 mg PO HS PRN 12/17/22 [History] traZODone HCL 150 mg PO HS 12/17/22 [History] Furosemide [Lasix] 20 mg PO DAILY #30 tablet 12/19/22 [Rx] Follow up Appointment(s)/Referral(s): None,Stated [Primary Care Provider] - 1-2 days Discharge Disposition: OTHER INSTITUTION NOT DEFINED
[2022-12-19 15:06] LABS: BUN/Creat Ratio 24.78 Ratio (12.00-20.00); Blood Urea Nitrogen 22.3 mg/dL (9.0-27.0); Calcium 9.5 mg/dL (8.7-10.3); Carbon Dioxide 27.7 mmol/L (21.6-31.8); Chloride 100 mmol/L (96-109); Glucose 103 mg/dL (70-110); Magnesium 2.1 mg/dL (1.5-2.4); Potassium 3.7 mmol/L (3.5-5.5); Sodium 142 mmol/L (135-145)
--- NOTE | 2022-12-19 15:22 | P.PN ---
Subjective Progress Note Date: 12/19/22 82-year-old female who was seen in the emergency department, on December 17, with complaints of dizziness, and mental status changes. She apparently felt lightheaded, and just wasn't feeling herself. She apparently does wear oxygen at 2 L, at the assisted living home that she resides at. The patient was ev aluated in the emergency room, and was thought to possibly have pneumonia. She's currently on 5 L of oxygen. She's not receiving any IV fluids. Her primary care provider is Dr. Keny Seth. The patient is not a particularly good historian. She apparently has a history of COPD, dementia, hyperlipidemia, and rheumatoid arthritis, as well as depression. She was a former smoker. White count 11.2, hemoglobin 11.7, hematocrit 36.6, with a normal platelet count. Venous blood gas shows a pCO2 of 49, and a pH is 7.41. Sodium 136, potassium 3.3, chlorides 98, CO2 31, BUN 22, creatinine 0.89. N-terminal proBNP is 321. Troponin was normal. Chest x-ray shows some bibasilar opacities. The chest x- ray in my opinion could be consistent with either pneumonia and/or mild fluid overload. The patient was started on azithromycin and Rocephin. A pro- calcitonin level was only. The patient is seen today 12/18/2022 in follow-up on the regular medical floor. She is maintaining O2 saturations in the 90s on 3 L/m per nasal cannula. Still with some scattered rhonchi. Blood culture reveals no growth to date. Pro- calcitonin 0.09. Currently on ceftriaxone and azithromycin. Continued on DuoNeb inhalations. Heparin for DVT prophylaxis. The patient is seen today 12/19/2022 in follow-up on the regular medical floor. She is currently sitting up in bed. Awake and alert in no acute distress.c ontinues to maintain O2 saturations in the 90s on 3 L/m per nasal cannula. She's afebrile. Hemodynamically stable. Blood cultures revealed no growth. White count 11.3. Hemoglobin 12.2. Platelets 425. Sodium 142. Potassium 3.7. Bicarb 28. BUN 22. Creatinine 0.9. She is continued on Symbicort and DuoNeb inhalations. Objective - Vital Signs Vital signs: Vital Signs Temp 98.0 F 07/27/23 13:56 Pulse 90 12/19/22 13:56 Resp 16 12/19/22 13:56 BP 109/56 12/19/22 13:56 Pulse Ox 90 L 12/19/22 13:56 FiO2 Intake & Output 12/18/22 12/19/22 12/19/22 18:59 06:59 18:59 Intake Total 640 Output Total 2150 Balance -1510 Intake: Oral 640 Output: Urine 2150 Other: Voiding Method Toilet Toilet Toilet Diaper Diaper # Voids 4 2 # Bowel Movements 2 - Exam GENERAL EXAM: Alert, pleasant obese 82-year-old female, on 3 L nasal cannula, comfortable in no apparent distress. HEAD: Normocephalic. EYES: Normal reaction of pupils, equal size. NOSE: Clear with pink turbinates. THROAT: No erythema or exudates. NECK: No masses, no JVD. CHEST: No chest wall deformity. LUNGS: Equal air entry with bilateral scattered rhonchi. CVS: S1 and S2 normal with no audible murmur, regular rhythm. ABDOMEN: No hepatosplenomegaly, normal bowel sounds, no guarding or rigidity. SPINE: No scoliosis or deformity SKIN: No rashes CENTRAL NERVOUS SYSTEM: No focal deficits, tone is normal in all 4 extremities. EXTREMITIES: There is no peripheral edema. No clubbing, no cyanosis. Peripheral pulses are intact. - Labs CBC & Chem 7: 12/19/22 06:58 12/19/22 06:58 Labs: Abnormal Lab Results - Last 24 Hours (Table) 12/18/22 12/18/22 12/19/22 Range/Units 09:53 09:53 06:58 WBC 11.62 H 11.32 H (4.50-10.00) X 10*3/uL RBC 4.07 L 4.04 L (4.10-5.20) X 10*6/uL MCHC 31.5 L 31.7 L (32.0-37.0) d/dL RDW 15.3 H 15.5 H (11.5-14.5) % Neutrophils # 7.86 H (1.80-7.70) X 10*3/uL Neutrophils # (Manual) 8.60 H (1.80-7.70) X 10*3/uL Monocytes # 1.62 H (0.20-1.00) X 10*3/uL Monocytes # (Manual) 1.05 H (0.20-1.00) X 10*3/uL Eosinophils # 0.46 H (0.04-0.35) X 10*3/uL Eosinophils # (Manual) 0.70 H (0.04-0.35) X 10*3/uL Basophils # (Manual) 0.23 H (0.00-0.10) X 10*3/uL Anion Gap 13.30 H (4.00-12.00) mmol/L BUN/Creatinine Ratio 23.00 H (12.00-20.00) Ratio 12/19/22 Range/Units 06:58 WBC (4.50-10.00) X 10*3/uL RBC (4.10-5.20) X 10*6/uL MCHC (32.0-37.0) d/dL RDW (11.5-14.5) % Neutrophils # (1.80-7.70) X 10*3/uL Neutrophils # (Manual) (1.80-7.70) X 10*3/uL Monocytes # (0.20-1.00) X 10*3/uL Monocytes # (Manual) (0.20-1.00) X 10*3/uL Eosinophils # (0.04-0.35) X 10*3/uL Eosinophils # (Manual) (0.04-0.35) X 10*3/uL Basophils # (Manual) (0.00-0.10) X 10*3/uL Anion Gap 14.30 H (4.00-12.00) mmol/L BUN/Creatinine Ratio 24.78 H (12.00-20.00) Ratio Microbiology - Last 24 Hours (Table) 12/17/22 03:00 Blood Culture - Preliminary Blood 12/17/22 02:45 Blood Culture - Preliminary Blood Assessment and Plan Assessment: Lightheadedness, dizziness, cough, and shortness of breath, possibly related to bronchitis. Procalcitonin 0.09. Antibiotics discontinued. Vague history of COPD. Prior history of tobacco use. Chronic hypoxemic respiratory failure, on home O2 at 2 L. History of dementia. History of hyperlipidemia. History of rheumatoid arthritis. History of depression. Plan: The patient was seen and evaluated Medications and labs reviewed Currently stable and on 3 L Continue bronchodilators Lasix 40 mg IVP 1 Cleared for discharge back to [facility] I have personally seen and examined the patient, performed the documentation and the assessment and plan as written. Number of minutes spent on the visit: 10.
--- NOTE | 2022-12-19 15:42 | CDI ---
Documentation Clarification Form Date: 12/19/2022 03:28:59 PM From: Sandra Pickard RN, CCDS Admit Date: 12/17/2022 04:59:00 AM Patient Name: Ros Sweeney Visit Number: [id number] Discharge Date: ATTENTION: The Clinical Documentation Specialists (CDI) and [facility] Coding Staff appreciate your assistance in clarifying documentation. Please respond to the clarification below the line at the bottom and electronically sign. The CDI & [facility] Coding staff will review the response and follow-up if needed. Please note: Queries are made part of the Legal Health Record. If you have any questions, please contact the author of this message via ITS. Dr. Fe Perry Your patient has the documented diagnosis of diastolic CHF in the progress note on 12/18/22. Additional information regarding the [type, acuity] of CHF is requested. History/Risk Factors: COPD, Dementia, Hyperlipidemia, Rheumatoid Arthritis (RA) Clinical Indicators: 82-year-old female present with complaints of dizziness and dyspnea. She has chronic dyspnea and history of oxygen dependent COPD. She wears 2 L of home oxygen. 12/17 VS: 114/62 57 16 90% 5/L NC BNP: 321 Echocardiogram Results: Left ventricular ejection fraction is estimated at 55- 60%, Mild mitral, aortic and tricuspid regurgitation with mild pulmonary hypertension. 12/17 Chest X Ray: Mild vascular congestion. Bibasilar opacities. Possible trace left effusion. Treatment: Monitor O2 Sats (titrate) Lasix 40 MG IVP X1 12/19 Lasix 40 MG IVP X1 12/18 Bronchodilators/Duonebs per orders In your professional opinion, can you please clarify the [acuity and type] of CHF if known? [x] Acute Diastolic Heart Failure (preserved EF) [ ] Acute on Chronic Diastolic Heart Failure (preserved EF [ ] Other, please specify [ ] Unable to determine (Template Last Revised: June 2020) [id number]
== END 2022-12-19 15:51 | DRG 193 ==
LOC: EDBD → EC 02:30 → 4SSUR 04:59
PROVIDERS: ADMIT Internal Medicine; ATTEND Internal Medicine
DX: J18.9 Pneumonia, unspecified organism (principal); I50.31 Acute diastolic (congestive) heart failure; J96.21 Acute and chronic respiratory failure with hypoxia; F03.93 Unspecified dementia, unspecified severity, with mood disturbance; J44.0 Chronic obstructive pulmonary disease with (acute) lower respiratory infection; E87.1 Hypo-osmolality and hyponatremia; M06.9 Rheumatoid arthritis, unspecified; E87.6 Hypokalemia; E78.5 Hyperlipidemia, unspecified; Z66 Do not resuscitate; Z96.651 Presence of right artificial knee joint; Z99.81 Dependence on supplemental oxygen; Z88.0 Allergy status to penicillin; Z87.891 Personal history of nicotine dependence
CPT/HCPCS: 36415; 71046; 80048; 80053; 81001; 82803; 83605; 83735; 83880; 84145; 84484; 85025; 85610; 85730; 87040; 93005; 93306; 94640; 94760; 96365; 96366; 96367; 99285

== ENCOUNTER 2022-12-21 05:24 | Inpatient (IN) | payer MEDICARE ==
[2022-12-21] MEDS ORDERED: IPRATROPIUM-ALBUTEROL 3 ML NEB INHALATION STA (05:37)
[2022-12-21] MEDS ORDERED: SODIUM CHLORIDE 0.9% 1,000 ML IV STA (05:37)
[2022-12-21] MEDS ORDERED: methylPREDNISolone SOD SUCCI 125 MG/2 ML VIAL IV STA (05:37)
--- NOTE | 2022-12-21 05:45 | ED ---
SOB HPI - General Chief Complaint: Shortness of Breath Stated Complaint: SOB Time Seen by Provider: 12/21/22 05:33 Source: patient, EMS, RN notes reviewed, old records reviewed Mode of arrival: EMS Limitations: no limitations - History of Present Illness Initial Comments: This 82-year-old female to the emergency department for evaluation. Today patient presents for evaluation of severe shortness of breath unable to give history secondary to significant amount of work of breathing complicated by submental oxygen and breathing treatment. Patient comes in for severe shortness of breath and low pulse ox in the 70s MD Complaint: shortness of breath, "asthma attack" -: hour(s) Severity: severe Severity scale (1-10): 10 Consistency: constant Improves With: nothing Worsens With: nothing Known History Of: COPD Context: anxiety, recent illness Associated Symptoms: chest pain, cough Treatments Prior to Arrival: oxygen, bronchodilator - Related Data Home Medications Medication Instructions Recorded Confirmed Acetaminophen Tab [Tylenol] 500 mg PO Q6HR PRN 12/17/22 12/21/22 Budesonide-Formot 160-4.5 Mcg 2 puff INHALATION RT-BID 12/17/22 12/21/22 [Symbicort 160-4.5 Mcg Inhaler] Cholecalciferol [Vitamin D3 (125 125 mcg PO DAILY 12/17/22 12/21/22 Mcg = 5000 Iu)] Ciclopirox Olamine [Loprox 0.77% 1 applic TOPICAL DAILY 12/17/22 12/21/22 cream] Cyanocobalamin (Vitamin B-12) 1,000 mcg PO DAILY 12/17/22 12/21/22 [Vitamin B-12] FLUoxetine HCL [PROzac] 40 mg PO DAILY 12/17/22 12/21/22 Famotidine [Pepcid] 20 mg PO W/SUPPER 12/17/22 12/21/22 Fluticasone Nasal [place] [Flonase 1 spr EA NOSTRIL BID 12/17/22 12/21/22 Nasal [place]] Folic Acid 1 mg PO HS 12/17/22 12/21/22 Gabapentin [Neurontin] 300 mg PO TID 12/17/22 12/21/22 Ipratropium-Albuterol Nebulize 3 ml INHALATION RT-QID 12/17/22 12/21/22 [Duoneb 0.5 mg-3 mg/3 ml Soln] Levothyroxine Sodium [Synthroid] 25 mcg PO DAILY 12/17/22 12/21/22 Loperamide [Imodium] 2 mg PO QID PRN 12/17/22 12/21/22 Melatonin 10 mg PO HS 12/17/22 12/21/22 Methotrexate/Pf [Reditrex 25 mg/ml 15 mg SQ WE 12/17/22 12/21/22 Syringe] Multivitamins, Thera [Multivitamin 1 tab PO DAILY 12/17/22 12/21/22 (formulary)] Pantoprazole Sodium [Protonix] 40 mg PO DAILY 12/17/22 12/21/22 Rivastigmine Tartrate [Exelon] 3 mg PO BID 12/17/22 12/21/22 Rosuvastatin [Crestor] 10 mg PO HS 12/17/22 12/21/22 Thiamine [Vitamin B-1] 100 mg PO DAILY 12/17/22 12/21/22 clonazePAM [KlonoPIN] 0.5 mg PO DAILY 12/17/22 12/21/22 clonazePAM [KlonoPIN] 1 mg PO HS 12/17/22 12/21/22 rOPINIRole HCL [Requip] 1 mg PO HS PRN 12/17/22 12/21/22 traZODone HCL 150 mg PO HS 12/17/22 12/21/22 Previous Rx's Medication Instructions Recorded Spironolactone [Aldactone] 25 mg PO DAILY #30 tab 12/23/22 Torsemide [Demadex] 20 mg PO DAILY #30 tab 12/23/22 predniSONE 30 mg PO DAILY #9 tab 12/23/22 Allergies Allergy/AdvReac Type Severity Reaction Status Date / Time alendronate sodium Allergy Unknown Verified 12/21/22 13:16 Penicillins Allergy Unknown Verified 12/21/22 13:16 Review of Systems ROS Statement: Those systems with pertinent positive or pertinent negative responses have been documented in the HPI. ROS Other: All systems not noted in ROS Statement are negative. Past Medical History Past Medical History: COPD, Dementia, Hyperlipidemia, Rheumatoid Arthritis (RA) Additional Past Medical History / Comment(s): dementia History of Any Multi-Drug Resistant Organisms: None Reported Past Surgical History: Hysterectomy, Joint Replacement Additional Past Surgical History / Comment(s): R knee Past Anesthesia/Blood Transfusion Reactions: No Reported Reaction Past Psychological History: Depression Smoking Status: Former smoker Past Alcohol Use History: None Reported Past Drug Use History: None Reported General Exam Limitations: no limitations General appearance: alert, in no apparent distress, anxious Head exam: Present: atraumatic, normocephalic, normal inspection Eye exam: Present: normal appearance, PERRL, EOMI. Absent: scleral icterus, conjunctival injection, periorbital swelling ENT exam: Present: normal exam, mucous membranes moist Neck exam: Present: normal inspection. Absent: tenderness, meningismus, lymphadenopathy Respiratory exam: Present: respiratory distress, wheezes, accessory muscle use, decreased breath sounds, prolonged expiratory. Absent: rales, rhonchi, stridor Cardiovascular Exam: Present: regular rate, normal rhythm, normal heart sounds. Absent: systolic murmur, diastolic murmur, rubs, gallop, clicks GI/Abdominal exam: Present: soft, normal bowel sounds. Absent: distended, tenderness, guarding, rebound, rigid Extremities exam: Present: normal inspection, full ROM, normal capillary refill. Absent: tenderness, pedal edema, joint swelling, calf tenderness Back exam: Present: normal inspection Neurological exam: Present: alert, oriented X3, CN II-XII intact Psychiatric exam: Present: normal affect, normal mood Skin exam: Present: warm, dry, intact, normal color. Absent: rash Course Vital Signs 12/21/22 12/21/22 12/21/22 05:33 05:56 06:08 Temperature 98 F Pulse Rate 70 79 Pulse Rate [ Pulse Oximetery ] Respiratory 26 H 28 H Rate Blood Pressure 109/62 Blood Pressure [Left Arm] O2 Sat by Pulse 90 L Oximetry 12/21/22 12/21/22 12/21/22 06:09 06:29 07:15 Temperature Pulse Rate 77 76 71 Pulse Rate [ Pulse Oximetery ] Respiratory 24 18 Rate Blood Pressure 105/59 103/59 Blood Pressure [Left Arm] O2 Sat by Pulse 93 L 92 L Oximetry 12/21/22 12/21/22 10:00 10:03 Temperature 97.4 F L Pulse Rate 70 Pulse Rate [ 69 Pulse Oximetery ] Respiratory 18 18 Rate Blood Pressure 103/68 Blood Pressure 97/49 [Left Arm] O2 Sat by Pulse 92 L 99 Oximetry - Reevaluation(s) Reevaluation #1: 12/21/22 05:43 Medical records reviewed Reevaluation #2: 12/21/22 07:23 Patient showing mild improvement after breathing treatment, not requiring BiPAP currently Reevaluation #3: 12/21/22 07:24 Patient informed results questions answered Reevaluation #4: 12/21/22 05:43 Was pt. sent in by a medical professional or institution (, CHIRAG, ORGANIZATIONAL CONSULTANT, urgent care, hospital, or longterm...) When possible be specific @ -no Did you speak to anyone other than the patient for history (EMS, parent, family, police, friend...)? What history was obtained from this source @ -no Did you review nursing and triage notes (agree or disagree)? Why? @ -agree Are old charts reviewed (outside hosp., previous admission, EMS record, old EKG, old radiological studies, urgent care reports/EKG's, longterm records)? Report findings @ -yes Differential Diagnosis (chest pain, altered mental status, abdominal pain women, abdominal pain men, vaginal bleeding, weakness, fever, dyspnea, syncope, headache, dizziness, GI bleed, back pain, seizure, CVA, palpatations, mental health, musculoskeletal)? @ -prior EKG interpreted by me (3pts min.). @ -yes X-rays interpreted by me (1pt min.). @ -yes CT interpreted by me (1pt min.). @ -no U/S interpreted by me (1pt. min.). @ -no What testing was considered but not performed or refused? (CT, X-rays, U/S, l abs)? Why? @ -none What meds were considered but not given or refused? Why? @ -none Did you discuss the management of the patient with other professionals (professionals i.e. CHIRAG Daigle, ORGANIZATIONAL CONSULTANT, lab, RT, psych nurse, social media marketer, silver miner blasting, teacher, customs and border protection officer, telephonic case manager)? Give summary @ -no Was smoking cessation discussed for >3mins.? @ -no Was critical care preformed (if so, how long)? @ -yes31 Were there social determinants of health that impacted care today? How? (Homelessness, low income, unemployed, alcoholism, drug addiction, transportation, low edu. Level, literacy, decrease access to med. care, fdc, rehab)? @ -none Was there de-escalation of care discussed even if they declined (Discuss DNR or withdrawal of care, Hospice)? DNR status @ -no What co-morbidities impacted this encounter? (DM, HTN, Smoking, COPD, CAD, Cancer, CVA, ARF, Chemo, Hep., AIDS, mental health diagnosis, sleep apnea, morbid obesity)? @ -none Was patient admitted / discharged? Hospital course, mention meds given and route, prescriptions, significant lab abnormalities, going to OR and other pertinent info. @ - 82-year-old female to the emergency department for evaluation. Patient presents today for evaluation of shortness of breath respiratory failure hypoxic. Patient has CHF and COPD and combination causing significant respiratory distress. Patient will be admitted for further evaluation supportive care Admitted Undiagnosed new problem with uncertain prognosis? @ -no Drug Therapy requiring intensive monitoring for toxicity (Heparin, Nitro, Insulin, Cardizem)? @ -no Were any procedures done? @ -no Diagnosis/symptom? @ -COPD, CHF, hypoxia with respiratory failure Acute, or Chronic, or Acute on Chronic? @ -Acute Uncomplicated (without systemic symptoms) or Complicated (systemic symptoms)? @ -Complicated Side effects of treatment? @ -no Exacerbation, Progression, or Severe Exacerbation? @ -exacerbation Poses a threat to life or bodily function? How? (Chest pain, USA, SC, pneumonia, PE, COPD, DKA, ARF, appy, cholecystitis, CVA, Diverticulitis, Homicidal, Suicidal, threat to staff... and all critical care pts) @ -yes with hypoxia Reevaluation #5: 12/21/22 05:43 Differential Dyspnea: Coronary syndrome, arrhythmia, tamponade, asthma, COPD, pulmonary embolism, pneumonia, pneumothorax, pulmonary effusion, anaphylaxis, diabetic ketoacidosis, flailed chest, pulmonary contusion, diaphragmatic rupture, anemia, neuromuscular, this is not meant to be an all-inclusive list. - Consultations Consultation #1: Spoke with monie who agrees to admit this patient Medical Decision Making - Medical Decision Making 82-year-old female to the emergency department for evaluation. Patient presents today for evaluation of shortness of breath respiratory failure hypoxic. Patient has CHF and COPD and combination causing significant respiratory distress. Patient will be admitted for further evaluation supportive care - Lab Data Result diagrams: 12/22/22 05:49 12/22/22 05:49 Lab Results 12/21/22 12/21/22 12/21/22 Range/Units 05:50 05:50 05:50 WBC 14.2 H (3.8-10.6) k/uL RBC 4.16 (3.80-5.40) m/uL Hgb 12.7 (11.4-16.0) gm/dL Hct 38.4 (34.0-46.0) % MCV 92.5 (80.0-100.0) fL MCH 30.6 (25.0-35.0) pg MCHC 33.1 (31.0-37.0) g/dL RDW 14.9 (11.5-15.5) % Plt Count 228 (150-450) k/uL MPV 10.1 Neutrophils % 68 % Lymphocytes % 13 % Monocytes % 9 % Eosinophils % 8 % Basophils % 1 % Neutrophils # 9.6 H (1.3-7.7) k/uL Lymphocytes # 1.9 (1.0-4.8) k/uL Monocytes # 1.2 H (0-1.0) k/uL Eosinophils # 1.1 H (0-0.7) k/uL Basophils # 0.1 (0-0.2) k/uL PT (9.0-12.0) sec INR (<1.2) APTT (22.0-30.0) sec Sodium 137 (137-145) mmol/L Potassium 3.4 L (3.5-5.1) mmol/L Chloride 98 (98-107) mmol/L Carbon Dioxide 29 (22-30) mmol/L Anion Gap 10 mmol/L BUN 30 H (7-17) mg/dL Creatinine 0.95 (0.52-1.04) mg/dL Est GFR (CKD-EPI)AfAm 66 (>60 ml/min/1.73 sqM) Est GFR (CKD-EPI)NonAf 57 (>60 ml/min/1.73 sqM) Glucose 110 H (74-99) mg/dL Calcium 9.0 (8.4-10.2) mg/dL Magnesium 2.1 (1.6-2.3) mg/dL Total Bilirubin 0.6 (0.2-1.3) mg/dL AST 46 H (14-36) U/L ALT 27 (4-34) U/L Alkaline Phosphatase 105 (38-126) U/L Troponin I 0.016 (0.000-0.034) ng/mL NT-Pro-B Natriuret Pep 386 pg/mL Total Protein 6.6 (6.3-8.2) g/dL Albumin 3.4 L (3.5-5.0) g/dL 12/21/22 Range/Units 06:04 WBC (3.8-10.6) k/uL RBC (3.80-5.40) m/uL Hgb (11.4-16.0) gm/dL Hct (34.0-46.0) % MCV (80.0-100.0) fL MCH (25.0-35.0) pg MCHC (31.0-37.0) g/dL RDW (11.5-15.5) % Plt Count (150-450) k/uL MPV Neutrophils % % Lymphocytes % % Monocytes % % Eosinophils % % Basophils % % Neutrophils # (1.3-7.7) k/uL Lymphocytes # (1.0-4.8) k/uL Monocytes # (0-1.0) k/uL Eosinophils # (0-0.7) k/uL Basophils # (0-0.2) k/uL PT 10.6 (9.0-12.0) sec INR 1.0 (<1.2) APTT 22.6 (22.0-30.0) sec Sodium (137-145) mmol/L Potassium (3.5-5.1) mmol/L Chloride (98-107) mmol/L Carbon Dioxide (22-30) mmol/L Anion Gap mmol/L BUN (7-17) mg/dL Creatinine (0.52-1.04) mg/dL Est GFR (CKD-EPI)AfAm (>60 ml/min/1.73 sqM) Est GFR (CKD-EPI)NonAf (>60 ml/min/1.73 sqM) Glucose (74-99) mg/dL Calcium (8.4-10.2) mg/dL Magnesium (1.6-2.3) mg/dL Total Bilirubin (0.2-1.3) mg/dL AST (14-36) U/L ALT (4-34) U/L Alkaline Phosphatase (38-126) U/L Troponin I (0.000-0.034) ng/mL NT-Pro-B Natriuret Pep pg/mL Total Protein (6.3-8.2) g/dL Albumin (3.5-5.0) g/dL - EKG Data -: EKG Interpreted by Me (EKG is sinus 67 ND 153 QRS 113 QTc 455) - Radiology Data Radiology results: report reviewed (Chest x-rays positive for CHF), image reviewed Critical Care Time Critical Care Time: Yes Total Critical Care Time: 31 Disposition Clinical Impression: COPD (chronic obstructive pulmonary disease), Acute exacerbation of chronic obstructive pulmonary disease, Acute respiratory failure, Acute pulmonary edema, Congestive heart failure, Hypoxia Disposition: ADMITTED IP TO THIS HOSP Condition: Fair Is patient prescribed a controlled substance at d/c from ED?: No Time of Disposition: 07:20
[2022-12-21 06:28] LABS: ALT 27 U/L (4-34); AST 46 U/L (14-36); African American GFR (CKD) 66 (>60 ml/min/1.73 sqM); Albumin 3.4 g/dL (3.5-5.0); Alkaline Phosphatase 105 U/L (38-126); Anion Gap 10 mmol/L; Blood Urea Nitrogen 30 mg/dL (7-17); Carbon Dioxide 29 mmol/L (22-30); Chloride 98 mmol/L (98-107); Glucose 110 mg/dL (74-99); Magnesium 2.1 mg/dL (1.6-2.3); Non-African American GFR(CKD) 57 (>60 ml/min/1.73 sqM); Potassium 3.4 mmol/L (3.5-5.1); Sodium 137 mmol/L (137-145); Total Bilirubin 0.6 mg/dL (0.2-1.3); Total Protein 6.6 g/dL (6.3-8.2)
[2022-12-21 06:28] LABS: Partial Thromboplastin Time 22.6 sec (22.0-30.0); Prothrombin Time 10.6 sec (9.0-12.0)
[2022-12-21 06:36] LABS: NT-Pro-B-Type Natriuretic Pept 386 pg/mL
--- NOTE | 2022-12-21 06:50 | XR ---
EXAMINATION TYPE: XR chest 1V portable DATE OF EXAM: 12/21/2022 6:07 AM COMPARISON: Chest radiographs from 12/17/2022 TECHNIQUE: XR chest 1V portable Portable AP radiograph of the chest. CLINICAL INDICATION:Female, 82 years old with history of sob; FINDINGS: Lungs/Pleura: No pneumothorax. Bibasilar airspace opacities. Small left pleural effusion. Chronic sen escent parenchyma change. Pulmonary vascularity: Mild pulmonary vascular congestion. Heart/mediastinum: Cardiomediastinal silhouette is enlarged and stable. Musculoskeletal: No acute osseous pathology. Other: Bilateral breast prosthesis. : IMPRESSION: Cardiomegaly, pulmonary vascular congestion and small left pleural effusion. Correlate with BNP for c ongestive heart failure.
[2022-12-21 06:57] LABS: Basophils # (A) 0.1 k/uL (0-0.2); Basophils % (A) 1 %; Eosinophils # (A) 1.1 k/uL (0-0.7); Eosinophils % (A) 8 %; HCT 38.4 % (34.0-46.0); HGB 12.7 gm/dL (11.4-16.0); Lymphocytes # (A) 1.9 k/uL (1.0-4.8); Lymphocytes % (A) 13 %; MCH 30.6 pg (25.0-35.0); MCHC 33.1 g/dL (31.0-37.0); MCV 92.5 fL (80.0-100.0); Mean Platelet Volume 10.1; Monocytes # (A) 1.2 k/uL (0-1.0); Monocytes % (A) 9 %; Neutrophils # (A) 9.6 k/uL (1.3-7.7); Neutrophils % (A) 68 %; Platelet Count 228 k/uL (150-450); RBC 4.16 m/uL (3.80-5.40); RDW 14.9 % (11.5-15.5); WBC 14.2 k/uL (3.8-10.6)
[2022-12-21] MEDS ORDERED: ONDANSETRON 4 MG/2 ML VIAL IVP PRN (07:18)
[2022-12-21] MEDS ORDERED: NALOXONE 0.4 MG/ML 1 ML VIAL IV PRN (07:18)
[2022-12-21] MEDS ORDERED: FUROSEMIDE 10 MG/ML 4 ML VIAL IV STA (07:22)
[2022-12-21] MEDS ORDERED: POTASSIUM CHLORIDE ER 20 MEQ TAB.ER PO STA (09:41)
[2022-12-21] MEDS: IPRATROPIUM-ALBUTEROL 3 ML NEB INHALATION SCH ×3 (11:14→21:36)
--- NOTE | 2022-12-21 12:22 | P.CNPUL ---
History of Present Illness Consult date: 12/21/22 Requesting physician: Jessica Santana Reason for consult: dyspnea, COPD, hypoxemia, abnormal CXR/CT, other Chief complaint: Shortness of breath. History of present illness: Pulmonary consult dated 12/21/2022. 82-year-old female was recently in the hospital, admitted on December 17, discharged on December 19, back to [facility]. She's readmitted back to the hospital on December 21. Patient is seen in the emergency department, room #3. She's currently on 6 L of oxygen. She is not a particular good historian, and motivated the history is obtained from the documentation by the ER physician. According to his note, the patient was transported from [facility] to the emergency room, by EMS. Apparently she had shortness of breath, and increased work of breathing, and saturations which were in the 70s. The patient was not able to elaborate, and give any additional history. The patient has a history of COPD, rheumatoid arthritis, hyperlipidemia, dementia, and depression. She was a former smoker. White count 14.2, hemoglobin 12.7, hematocrit 38.4, and platelet count 228,000. Sodium 137, potassium 3.4, chlorides 98, CO2 29, anion gap 10, E1 30, creatinine 0.95. Troponin was 0.016 and N-terminal proBNP was 386. Chest x-ray showed cardiomegaly, pulmonary vascular congestion, and small left pleural effusion. Review of Systems REVIEW OF SYSTEMS: CONSTITUTIONAL: [Negative.] NEUROLOGIC: [ Negative.] HEENT: [ Negative.] CARDIAC: [Negative.] PULMONARY: Shortness of breath. GI: [Negative.] : [Negative.] RHEUMATOLOGIC: [ Negative.] IMMUNOLOGIC: [ Negative.] ENDOCRINE: [Negative. ] DERMATOLOGIC: [Negative.] Past Medical History Past Medical History: COPD, Dementia, Hyperlipidemia, Rheumatoid Arthritis (RA) Additional Past Medical History / Comment(s): dementia History of Any Multi-Drug Resistant Organisms: None Reported Past Surgical History: Hysterectomy, Joint Replacement Additional Past Surgical History / Comment(s): R knee Past Anesthesia/Blood Transfusion Reactions: No Reported Reaction Past Psychological History: Depression Smoking Status: Former smoker Past Alcohol Use History: None Reported Past Drug Use History: None Reported Medications and Allergies Home Medications Medication Instructions Recorded Confirmed Type Acetaminophen Tab [Tylenol] 500 mg PO Q6HR PRN 12/17/22 12/17/22 History Budesonide-Formot 160-4.5 Mcg 2 puff INHALATION RT-BID 12/17/22 12/17/22 History [Symbicort 160-4.5 Mcg Inhaler] Cetirizine HCl [Zyrtec] 10 mg PO HS 12/17/22 12/17/22 History Cholecalciferol [Vitamin D3 (125 125 mcg PO DAILY 12/17/22 12/17/22 History Mcg = 5000 Iu)] Ciclopirox Olamine [Loprox 0.77% 1 applic TOPICAL DAILY 12/17/22 12/17/22 History cream] Cyanocobalamin (Vitamin B-12) 1,000 mcg PO DAILY 12/17/22 12/17/22 History [Vitamin B-12] FLUoxetine HCL [PROzac] 40 mg PO DAILY 12/17/22 12/17/22 History Famotidine [Pepcid] 20 mg PO W/SUPPER 12/17/22 12/17/22 History Fluticasone Nasal [place] [Flonase 1 spray EA NOSTRIL BID 12/17/22 12/17/22 History Nasal [place]] Folic Acid 1 mg PO HS 12/17/22 12/17/22 History Gabapentin [Neurontin] 300 mg PO TID 12/17/22 12/17/22 History Ipratropium-Albuterol Nebulize 3 ml INHALATION RT-QID 12/17/22 12/17/22 History [Duoneb 0.5 mg-3 mg/3 ml Soln] Levothyroxine Sodium [Synthroid] 25 mcg PO DAILY 12/17/22 12/17/22 History Loperamide [Imodium] 2 mg PO QID PRN 12/17/22 12/17/22 History Melatonin 10 mg PO HS 12/17/22 12/17/22 History Methotrexate/Pf [Reditrex 25 mg/ml 15 mg SQ WE 12/17/22 12/17/22 History Syringe] Multivitamins, Thera [Multivitamin 1 tab PO DAILY 12/17/22 12/17/22 History (formulary)] Pantoprazole Sodium [Protonix] 40 mg PO DAILY 12/17/22 12/17/22 History Rivastigmine Tartrate [Exelon] 3 mg PO BID 12/17/22 12/17/22 History Rosuvastatin [Crestor] 10 mg PO HS 12/17/22 12/17/22 History Thiamine [Vitamin B-1] 100 mg PO DAILY 12/17/22 12/17/22 History Triamterene/Hydrochlorothiazid 1 tab PO DAILY 12/17/22 12/17/22 History [Maxzide 37.5-25] clonazePAM [KlonoPIN] 0.5 mg PO DAILY 12/17/22 12/17/22 History clonazePAM [KlonoPIN] 1 mg PO HS 12/17/22 12/17/22 History rOPINIRole HCL [Requip] 1 mg PO HS PRN 12/17/22 12/17/22 History traZODone HCL 150 mg PO HS 12/17/22 12/17/22 History Furosemide [Lasix] 20 mg PO DAILY #30 tablet 12/19/22 Rx Allergies Allergy/AdvReac Type Severity Reaction Status Date / Time alendronate sodium Allergy Unknown Verified 12/17/22 11:56 Penicillins Allergy Unknown Verified 12/17/22 11:56 Physical Exam Osteopathic Statement: *. No significant issues noted on an osteopathic structural exam other than those noted in the History and Physical/Consult. Vitals: Vital Signs Temp Pulse Pulse Resp BP BP Pulse Ox 12/21/22 11:24 76 12/21/22 11:14 72 12/21/22 10:03 70 18 103/68 99 12/21/22 10:00 97.4 F L 69 18 97/49 92 L 12/21/22 07:15 71 18 103/59 92 L 12/21/22 06:29 76 24 105/59 93 L 12/21/22 06:09 77 12/21/22 06:08 28 H 12/21/22 05:56 79 12/21/22 05:33 98 F 70 26 H 109/62 90 L Intake and Output 12/20/22 12/21/22 12/21/22 22:59 06:59 14:59 Other: Weight 90.718 kg No acute distress, no respiratory distress. The patient is not a particularly good historian. Currently she is on 6 L. HEENT examination is grossly unremarkable. Neck supple. Full range of motion. No adenopathy thyromegaly or neck vein distention. Cardiovascular examination reveals regular rhythm rate. S1-S2 normal. No S3 or S4. No discernible murmur noted. Heart rate is 76 bpm. Lungs reveal scattered rhonchi. No distinct wheezes or crackles. Breath sounds are equal. She does not take deep breaths. Abdomen obese, without tenderness. Extremities are intact. No cyanosis or clubbing. Trace edema. Skin is without rash or lesion. Neurologic examination is difficult to assess. Results - Laboratory Findings CBC and BMP: 12/21/22 05:50 12/21/22 05:50 PT/INR, D-dimer PT 10.6 sec (9.0-12.0) 12/21/22 06:04 INR 1.0 (<1.2) 12/21/22 06:04 Abnormal lab findings: Abnormal Labs 12/21/22 12/21/22 05:50 05:50 WBC 14.2 H Neutrophils # 9.6 H Monocytes # 1.2 H Eosinophils # 1.1 H Potassium 3.4 L BUN 30 H Glucose 110 H AST 46 H Albumin 3.4 L - Diagnostic Findings Chest x-ray: image reviewed Assessment and Plan Assessment: Acute hypoxemic respiratory failure, likely multifactorial, in part related to CHF, and COPD. Recent admission to the hospital, between December 17 and December 19, with a similar clinical scenario. History of COPD, from prior tobacco use. History of rheumatoid arthritis. History of dementia. History of hyperlipidemia. History of hypothyroidism. History of gastroesophageal reflux disease. Morbid obesity. Plan: Plan dated 12/21/2022. The patient is seen in the emergency department, room 3. The patient is not able to provide any additional history. The patient's currently on 6 L of oxygen. Chest x-ray appears also some fluid overload, although, her BNP is not particularly high. The patient will be given breathing treatments, will follow the patient closely. The patient may not be able to go back to [facility], is it appears that she may not be able to care for herself there. Additional recommendations and suggestions are forthcoming. Labs, x-rays, and medications are all reviewed. Time with Patient: Greater than 30
--- NOTE | 2022-12-21 13:23 | P.HPIM ---
History of Present Illness H&P Date: 12/21/22 Chief Complaint: Hypoxia 82-year-old woman with medical history of chronic hypoxic respiratory failure on 2 L of oxygen presented for evaluation of dyspnea. She was recently discharged on 12/19, this is her discharge summary: "Patient is a poor historian due to underlying poor insight into medical care, and is a long-term care resident. In the emergency room, patient was afebrile, 114/62, heart rate 57, 90% on 5 L nasal cannula. CBC demonstrated leukocytosis to 11.2, otherwise unremarkable. Basic metabolic panel showed hyponatremia to 136, hypokalemia to 3.3, otherwise unremarkable. Liver function tests showed low total albumin of 3.1 and protein of 6.1. UA shows trace protein, trace leukocyte esterase, 7 white blood cells, few bacteria, few mucus. Chest x-ray showed cardiomegaly with bilateral increased pulmonary vascularity, with possible pneumonia in the left lower lobe. EKG shows sinus bradycardia with sinus arrhythmia, left axis deviation, no signs of ischemia. Case discussed with emergency room N decision was made to admit the patient to the hospital for further evaluation. Pro-calcitonin was low and therefore pneumonia was ruled out. Pulmonology consulted, antibiotics were discontinued. Pulmonology started nebulizers for presumed COPD. Patient was also given dose of Lasix. She improved back to baseline oxygen requirement and functional status with these interventions and was discharged with follow-up." She presented again from [facility] due to increasing dyspnea and increasing oxygen requirement. She remains a poor historian and is unable to describe her presenting complaint or present symptoms. In the emergency room, patient was afebrile, and 7/49, heart rate 69, 92% on 6 L of nasal cannula. Patient has leukocytosis to 14.2. Basic metabolic panel shows potassium of 3.4, BUN 30, creatinine of 0.95. Liver function tests show mild elevation of AST to 46. BNP was 386. Troponins 0.016. Coags unremarkable. Chest x-ray shows cardiac megaly with vascular congestion consistent with volume overload. Case was discu ssed with emergency room and decision was made to admit the patient for further evaluation of hypoxic respiratory failure. Patient was not a reliable historian to obtain a review of systems Gen: in no apparent distress, resting comfortably in bed Eyes: PERRL, no scleral injection or icterus HENT: normocephalic, atraumatic, good hearing acuity, moist mucous membranes Neck: no tracheal deviation, full range of motion Resp: good air exchange, breathing comfortably with no accessory muscle use, no tactile fremitus CVS: good distal perfusion x 4, no pitting edema GI: soft, NTTP, ND, no hepatosplenomegaly : no suprapubic tenderness, no CVAT, costello catheter not present MSK: no clubbing, no cyanosis, no noted contractures of extremities Skin: no noted rashes, petechiae; temperature of skin is appropriate Neuro: moving all extremities without signs of weakness, CN II-XII intact Psych: cooperative, euthymic mood, insight and judgment intact Labs and imaging as above Assessment: Acute on chronic hypoxemic respiratory failure Suspected volume overload, diastolic heart failure COPD exacerbation Hypokalemia Plan: Vital signs reviewed and noted in the HPI Lab work reviewed and noted in the HPI CXR is personally interpreted and noted in the HPI Case was discussed with the Emergency Room provider and decision was made to admit the patient for hypoxic respiratory failure Start Lasix 40 mg IV daily Pulmonology consult, agree with nebulizers Continue prednisone Patient is DO NOT RESUSCITATE Past Medical History Past Medical History: Heart Failure, COPD, Dementia, Hyperlipidemia, Rheumatoid Arthritis (RA) Additional Past Medical History / Comment(s): dementia History of Any Multi-Drug Resistant Organisms: None Reported Past Surgical History: Hysterectomy, Joint Replacement Additional Past Surgical History / Comment(s): R knee Past Anesthesia/Blood Transfusion Reactions: No Reported Reaction Past Psychological History: Depression Smoking Status: Former smoker Past Alcohol Use History: None Reported Past Drug Use History: None Reported Medications and Allergies Home Medications Medication Instructions Recorded Confirmed Type Acetaminophen Tab [Tylenol] 500 mg PO Q6HR PRN 12/17/22 12/17/22 History Budesonide-Formot 160-4.5 Mcg 2 puff INHALATION RT-BID 12/17/22 12/17/22 History [Symbicort 160-4.5 Mcg Inhaler] Cetirizine HCl [Zyrtec] 10 mg PO HS 12/17/22 12/17/22 History Cholecalciferol [Vitamin D3 (125 125 mcg PO DAILY 12/17/22 12/17/22 History Mcg = 5000 Iu)] Ciclopirox Olamine [Loprox 0.77% 1 applic TOPICAL DAILY 12/17/22 12/17/22 History cream] Cyanocobalamin (Vitamin B-12) 1,000 mcg PO DAILY 12/17/22 12/17/22 History [Vitamin B-12] FLUoxetine HCL [PROzac] 40 mg PO DAILY 12/17/22 12/17/22 History Famotidine [Pepcid] 20 mg PO W/SUPPER 12/17/22 12/17/22 History Fluticasone Nasal [place] [Flonase 1 spray EA NOSTRIL BID 12/17/22 12/17/22 History Nasal [place]] Folic Acid 1 mg PO HS 12/17/22 12/17/22 History Gabapentin [Neurontin] 300 mg PO TID 12/17/22 12/17/22 History Ipratropium-Albuterol Nebulize 3 ml INHALATION RT-QID 12/17/22 12/17/22 History [Duoneb 0.5 mg-3 mg/3 ml Soln] Levothyroxine Sodium [Synthroid] 25 mcg PO DAILY 12/17/22 12/17/22 History Loperamide [Imodium] 2 mg PO QID PRN 12/17/22 12/17/22 History Melatonin 10 mg PO HS 12/17/22 12/17/22 History Methotrexate/Pf [Reditrex 25 mg/ml 15 mg SQ WE 12/17/22 12/17/22 History Syringe] Multivitamins, Thera [Multivitamin 1 tab PO DAILY 12/17/22 12/17/22 History (formulary)] Pantoprazole Sodium [Protonix] 40 mg PO DAILY 12/17/22 12/17/22 History Rivastigmine Tartrate [Exelon] 3 mg PO BID 12/17/22 12/17/22 History Rosuvastatin [Crestor] 10 mg PO HS 12/17/22 12/17/22 History Thiamine [Vitamin B-1] 100 mg PO DAILY 12/17/22 12/17/22 History Triamterene/Hydrochlorothiazid 1 tab PO DAILY 12/17/22 12/17/22 History [Maxzide 37.5-25] clonazePAM [KlonoPIN] 0.5 mg PO DAILY 12/17/22 12/17/22 History clonazePAM [KlonoPIN] 1 mg PO HS 12/17/22 12/17/22 History rOPINIRole HCL [Requip] 1 mg PO HS PRN 12/17/22 12/17/22 History traZODone HCL 150 mg PO HS 12/17/22 12/17/22 History Furosemide [Lasix] 20 mg PO DAILY #30 tablet 12/19/22 Rx Allergies Allergy/AdvReac Type Severity Reaction Status Date / Time alendronate sodium Allergy Unknown Verified 12/17/22 11:56 Penicillins Allergy Unknown Verified 12/17/22 11:56 Physical Exam Osteopathic Statement: *. No significant issues noted on an osteopathic structural exam other than those noted in the History and Physical/Consult. Vitals: Vital Signs Temp Pulse Pulse Resp BP BP Pulse Ox 12/21/22 11:24 76 12/21/22 11:14 72 12/21/22 10:03 70 18 103/68 99 12/21/22 10:00 97.4 F L 69 18 97/49 92 L 12/21/22 07:15 71 18 103/59 92 L 12/21/22 06:29 76 24 105/59 93 L 12/21/22 06:09 77 12/21/22 06:08 28 H 12/21/22 05:56 79 12/21/22 05:33 98 F 70 26 H 109/62 90 L Intake and Output 12/20/22 12/21/22 12/21/22 22:59 06:59 14:59 Other: Weight 90.718 kg 90.718 kg Results CBC & Chem 7: 12/21/22 05:50 12/21/22 05:50 Labs: Abnormal Lab Results - Last 24 Hours (Table) 12/21/22 12/21/22 Range/Units 05:50 05:50 WBC 14.2 H (3.8-10.6) k/uL Neutrophils # 9.6 H (1.3-7.7) k/uL Monocytes # 1.2 H (0-1.0) k/uL Eosinophils # 1.1 H (0-0.7) k/uL Potassium 3.4 L (3.5-5.1) mmol/L BUN 30 H (7-17) mg/dL Glucose 110 H (74-99) mg/dL AST 46 H (14-36) U/L Albumin 3.4 L (3.5-5.0) g/dL Thrombosis Risk Factor Assmnt - Choose All That Apply Any of the Below Risk Factors Present?: Yes Each Factor Represents 1 point: Abnormal pulmonary function (COPD), Obesity (BMI >25), Swollen legs (current), Varicose veins Other Risk Factors: Yes Each Risk Factor Represents 3 Points: Age 75 years or older Other congenital or acquired thrombophilia - If yes, enter type in comment: Yes Thrombosis Risk Factor Assessment Total Risk Factor Score: 7 Thrombosis Risk Factor Assessment Level: High Risk
[2022-12-21] MEDS ORDERED: ACETAMINOPHEN TAB 500 MG TAB PO PRN (15:58)
--- NOTE | 2022-12-21 16:41 | P.CRDCN ---
History of Present Illness Consult date: 12/21/22 History of present illness: HISTORY OF PRESENTING ILLNESS 82-year-old female who was recently discharged on 12/19/2022. Patient initially presented with worsening shortness of breath. She was treated for mild CHF exacerbation and 2Loxygen and was discharged to a long-term care resident. This time she presented to the hospital with worsening shortness of breath and increased oxygen requirements. Cardiology was consulted for CHF evaluation. Patient denies having any chest pain chest pressure or shortness of breath. She mostly stays in bed and ambulates with a wheelchair. She denies any palpitations lightheadedness or dizziness. DIAGNOSTICS EKG reveals sinus bradycardia, left axis deviation, no significant ST-T wave changes diagnostic for ischemia. Chest xray respiratory effort with bilateral lower lobe atelectasis. Laboratory reviewed, leukocytosis 14.2, rotation 3.4, albumin 30, creatinine 0.9. BNP is not elevated and is measured at 386 troponin is not elevated. Current cardiac medications include rosuvastatin Lasix 20 mg Echo from 12/17/2022 shows normal LVEF measuring at 55%, mild mitral regurgitation, mild aortic regurgitation.. REVIEW OF SYSTEMS At the time of my exam: Patient is a poor historian, she has dementia CONSTITUTIONAL: Denies fever or chills. CARDIOVASCULAR: Denies chest pain. On 2 L oxygen reports shortness of breath RESPIRATORY: Denies cough. GASTROINTESTINAL: Denies abdominal pain, diarrhea, constipation, nausea or vomiting. MUSCULOSKELETAL: Denies myalgias. NEUROLOGIC: Denies numbness, tingling or weakness. ENDOCRINE: Denies fatigue, weight change, polydipsia or polyurina. GENITOURINARY: Denies burning, hematuria or urgency with micturation. HEMATOLOGIC: Denies history of anemia or bleeding. PHYSICAL EXAMINATION Vital signs reviewed. CONSTITUTIONAL: No apparent distress. Patient has dementia. HEENT: Head is normocephalic. Pupils are equal, round. Sclerae anicteric. Mucous membranes of the mouth are moist. No JVD. No carotid bruit. CHEST EXAMINATION: Lungs are clear to auscultation. . On 2 L oxygen. Poor inspiratory effort, reduced air entry in bilateral lower lobes HEART EXAMINATION: Regular rate and rhythm. S1, S2 heard. No murmurs, gallops or rub. ABDOMEN: Soft, nontender. Positive bowel sounds. EXTREMITIES: 2+ peripheral pulses, no lower extremity edema and no calf t enderness. NEUROLOGIC EXAMINATION: Patient is awake, alert and oriented x3. ASSESSMENT Acute on chronic hypoxic respiratory failure Mild heart failure exacerbation with preserved ejection fraction History of COPD PLAN Start IV Lasix 40 mg today. From tomorrow would suggest changing diuretics to PO. Will change it to torsemide 20mg daily. We will add Aldactone 25 mg daily If Bp allows we will Start metoprolol succinate 25 mg daily. from tomorrow No need to repeat echocardiogram Past Medical History Past Medical History: Heart Failure, COPD, Dementia, Hyperlipidemia, Rheumatoid Arthritis (RA) Additional Past Medical History / Comment(s): dementia History of Any Multi-Drug Resistant Organisms: None Reported Past Surgical History: Hysterectomy, Joint Replacement Additional Past Surgical History / Comment(s): R knee Past Anesthesia/Blood Transfusion Reactions: No Reported Reaction Past Psychological History: Depression Smoking Status: Former smoker Past Alcohol Use History: None Reported Past Drug Use History: None Reported Medications and Allergies Home Medications Medication Instructions Recorded Confirmed Type Acetaminophen Tab [Tylenol] 500 mg PO Q6HR PRN 12/17/22 12/21/22 History Budesonide-Formot 160-4.5 Mcg 2 puff INHALATION RT-BID 12/17/22 12/21/22 History [Symbicort 160-4.5 Mcg Inhaler] Cetirizine HCl [Zyrtec] 10 mg PO HS 12/17/22 12/21/22 History Cholecalciferol [Vitamin D3 (125 125 mcg PO DAILY 12/17/22 12/21/22 History Mcg = 5000 Iu)] Ciclopirox Olamine [Loprox 0.77% 1 applic TOPICAL DAILY 12/17/22 12/21/22 Histo ry cream] Cyanocobalamin (Vitamin B-12) 1,000 mcg PO DAILY 12/17/22 12/21/22 History [Vitamin B-12] FLUoxetine HCL [PROzac] 40 mg PO DAILY 12/17/22 12/21/22 History Famotidine [Pepcid] 20 mg PO W/SUPPER 12/17/22 12/21/22 History Fluticasone Nasal [place] [Flonase 1 spr EA NOSTRIL BID 12/17/22 12/21/22 History Nasal [place]] Folic Acid 1 mg PO HS 12/17/22 12/21/22 History Gabapentin [Neurontin] 300 mg PO TID 12/17/22 12/21/22 History Ipratropium-Albuterol Nebulize 3 ml INHALATION RT-QID 12/17/22 12/21/22 History [Duoneb 0.5 mg-3 mg/3 ml Soln] Levothyroxine Sodium [Synthroid] 25 mcg PO DAILY 12/17/22 12/21/22 History Loperamide [Imodium] 2 mg PO QID PRN 12/17/22 12/21/22 History Melatonin 10 mg PO HS 12/17/22 12/21/22 History Methotrexate/Pf [Reditrex 25 mg/ml 15 mg SQ WE 12/17/22 12/21/22 History Syringe] Multivitamins, Thera [Multivitamin 1 tab PO DAILY 12/17/22 12/21/22 History (formulary)] Pantoprazole Sodium [Protonix] 40 mg PO DAILY 12/17/22 12/21/22 History Rivastigmine Tartrate [Exelon] 3 mg PO BID 12/17/22 12/21/22 History Rosuvastatin [Crestor] 10 mg PO HS 12/17/22 12/21/22 History Thiamine [Vitamin B-1] 100 mg PO DAILY 12/17/22 12/21/22 History Triamterene/Hydrochlorothiazid 1 tab PO DAILY 12/17/22 12/21/22 History [Maxzide 37.5-25] clonazePAM [KlonoPIN] 0.5 mg PO DAILY 12/17/22 12/21/22 History clonazePAM [KlonoPIN] 1 mg PO HS 12/17/22 12/21/22 History rOPINIRole HCL [Requip] 1 mg PO HS PRN 12/17/22 12/21/22 History traZODone HCL 150 mg PO HS 12/17/22 12/21/22 History Furosemide [Lasix] 20 mg PO DIRECTED 12/21/22 12/21/22 History Allergies Allergy/AdvReac Type Severity Reaction Status Date / Time alendronate sodium Allergy Unknown Verified 12/21/22 13:16 Penicillins Allergy Unknown Verified 12/21/22 13:16 Physical Exam Vitals: Vital Signs Temp Pulse Pulse Resp BP BP Pulse Ox 12/21/22 16:31 93 L 12/21/22 16:02 78 12/21/22 15:51 74 12/21/22 13:32 97.5 F L 74 18 103/64 92 L 12/21/22 11:24 76 12/21/22 11:14 72 12/21/22 10:03 70 18 103/68 99 12/21/22 10:00 97.4 F L 69 18 97/49 92 L 12/21/22 07:15 71 18 103/59 92 L 12/21/22 06:29 76 24 105/59 93 L 12/21/22 06:09 77 12/21/22 06:08 28 H 12/21/22 05:56 79 12/21/22 05:33 98 F 70 26 H 109/62 90 L Intake and Output 12/21/22 12/21/22 12/21/22 06:59 14:59 22:59 Output Total 350 Balance -350 Output: Urine 350 Other: Voiding Method External Catheter # Voids 1 # Bowel Movements 1 Weight 90.718 kg 90.718 kg Results 12/21/22 05:50 12/21/22 05:50 Cardiac Enzymes 12/21/22 12/21/22 Range/Units 05:50 05:50 AST 46 H (14-36) U/L Troponin I 0.016 (0.000-0.034) ng/mL Coagulation 12/21/22 Range/Units 06:04 PT 10.6 (9.0-12.0) sec APTT 22.6 (22.0-30.0) sec CBC 12/21/22 Range/Units 05:50 WBC 14.2 H (3.8-10.6) k/uL RBC 4.16 (3.80-5.40) m/uL Hgb 12.7 (11.4-16.0) gm/dL Hct 38.4 (34.0-46.0) % Plt Count 228 (150-450) k/uL Comprehensive Metabolic Panel 12/21/22 Range/Units 05:50 Sodium 137 (137-145) mmol/L Potassium 3.4 L (3.5-5.1) mmol/L Chloride 98 (98-107) mmol/L Carbon Dioxide 29 (22-30) mmol/L BUN 30 H (7-17) mg/dL Creatinine 0.95 (0.52-1.04) mg/dL Glucose 110 H (74-99) mg/dL Calcium 9.0 (8.4-10.2) mg/dL AST 46 H (14-36) U/L ALT 27 (4-34) U/L Alkaline Phosphatase 105 (38-126) U/L Total Protein 6.6 (6.3-8.2) g/dL Albumin 3.4 L (3.5-5.0) g/dL Current Medications Generic Name Dose Route Start Last Admin Trade Name Freq PRN Reason Stop Dose Admin Acetaminophen 500 mg 12/21/22 15:58 Acetaminophen Tab 500 Mg Tab PO Q6HR PRN Pain or Fever > 100.5 Albuterol/Ipratropium 3 ml 12/21/22 12:00 12/21/22 15:48 Ipratropium-Albuterol 3 Ml Neb INHALATION 3 ml RT-QID PEPE Administration Budesonide 1 mg 12/21/22 20:00 Budesonide 1 Mg/2 Ml Nebu INHALATION RT-BID [facility] Budesonide/Formoterol Fumarate 2 puff 12/21/22 20:00 Symbicort 160-4.5 Mcg Inhaler INHALATION RT-BID [facility] Cholecalciferol 125 mcg 12/22/22 09:00 Cholecalciferol 125 Mcg (5000 Iu) Tablet PO DAILY [facility] Clonazepam 0.5 mg 12/22/22 09:00 Clonazepam 0.5 Mg Tab PO DAILY [facility] Clonazepam 1 mg 12/21/22 21:00 Clonazepam 1 Mg Tab PO HS [facility] Cyanocobalamin 1,000 mcg 12/22/22 09:00 Cyanocobalamin 500 Mcg Tab PO DAILY [facility] Famotidine 20 mg 12/21/22 17:30 Famotidine 20 Mg Tab PO W/SUPPER [facility] Fluoxetine HCl 40 mg 12/22/22 09:00 Fluoxetine Hcl 20 Mg Cap PO DAILY [facility] Fluticasone Propionate 1 spray 12/21/22 21:00 Fluticasone 50mcg/Coker Nasal 16gm EA NOSTRIL BID [facility] Folic Acid 1 mg 12/21/22 21:00 Folic Acid 1 Mg Tab PO HS [facility] Formoterol Fumarate 20 mcg 12/21/22 20:00 Formoterol Fumarate 20 Mcg/2 Ml Nebu INHALATION RT-BID [facility] Gabapentin 300 mg 12/21/22 22:00 Gabapentin 300 Mg Cap PO TID [facility] Levothyroxine Sodium 25 mcg 12/22/22 06:30 Levothyroxine 25 Mcg Tab PO DAILY@0630 [facility] Melatonin 10 mg 12/21/22 21:00 Melatonin 5 Mg Tablet PO HS [facility] Multivitamins 1 each 12/22/22 09:00 Multivitamins, Thera 1 Each Tab PO DAILY [facility] Naloxone HCl 0.2 mg 12/21/22 07:18 Naloxone 0.4 Mg/Ml 1 Ml Vial IV Q2M PRN Opioid Reversal Non-Formulary Medication 1 applic 12/22/22 09:00 Ciclopirox Olamine [Loprox 0.77% Cream] TOPICAL DAILY [facility] Non-Formulary Medication 15 mg 12/25/22 16:04 Methotrexate/Pf [Reditrex 25 Mg/Ml Syringe] SQ WE [facility] Non-Formulary Medication 3 mg 12/21/22 21:00 Rivastigmine Tartrate [Exelon] PO BID [facility] Non-Formulary Medication 10 mg 12/21/22 21:00 Rosuvastatin PO HS [facility] Ondansetron HCl 4 mg 12/21/22 07:18 Ondansetron 4 Mg/2 Ml Vial IVP Q8HR PRN Nausea And Vomiting Pantoprazole Sodium 40 mg 12/22/22 07:30 Pantoprazole 40 Mg Tablet PO AC-BRKFST [facility] Prednisone 30 mg 12/22/22 09:00 Prednisone 10 Mg Tab PO DAILY [facility] Ropinirole HCl 1 mg 12/21/22 16:04 Ropinirole Hcl 1 Mg Tab PO HS PRN restless legs Spironolactone 25 mg 12/21/22 16:45 Spironolactone 25 Mg Tab PO DAILY [facility] [place] Thiamine HCl 100 mg 12/22/22 09:00 Thiamine 100 Mg Tab PO DAILY [facility] Torsemide 20 mg 12/22/22 09:00 Torsemide 20 Mg Tab PO DAILY [facility] Trazodone HCl 150 mg 12/21/22 21:00 Trazodone Hcl 100 Mg Tab PO HS [facility] Intake and Output 12/21/22 12/21/22 12/21/22 06:59 14:59 22:59 Output Total 350 Balance -350 Output: Urine 350 Other: Voiding Method External Catheter # Voids 1 # Bowel Movements 1 Weight 90.718 kg 90.718 kg Patient Weight 12/22/22 06:59 Weight 90.718 kg 12/21/22 05:50 12/21/22 05:50
[2022-12-21] MEDS: SPIRONOLACTONE 25 MG TAB PO SCH (17:57)
[2022-12-21] MEDS: FAMOTIDINE 20 MG TAB PO SCH (17:57)
[2022-12-21] MEDS ORDERED: SYMBICORT 160-4.5 MCG INHALER INHALATION SCH (20:00)
[2022-12-21] MEDS: traZODone HCL 100 MG TAB PO SCH (20:18)
[2022-12-21] MEDS: FOLIC ACID 1 MG TAB PO SCH (20:18)
[2022-12-21] MEDS: clonazePAM 1 MG TAB PO SCH (20:18)
[2022-12-21] MEDS: ATORVASTATIN 20 MG TAB PO SCH (20:18)
[2022-12-21] MEDS: GABAPENTIN 300 MG CAP PO SCH (20:18)
[2022-12-21] MEDS: MELATONIN 5 MG TABLET PO SCH (20:18)
[2022-12-21] MEDS: FORMOTEROL FUMARATE 20 MCG/2 ML NEBU INHALATION SCH (21:36)
[2022-12-21] MEDS: BUDESONIDE 1 MG/2 ML NEBU INHALATION SCH (21:36)
[2022-12-22] MEDS: FLUTICASONE 50MCG/SPRAY NASAL 16GM EA NOSTRIL SCH ×3 (02:42→20:58)
[2022-12-22] MEDS: LEVOTHYROXINE 25 MCG TAB PO SCH (06:41)
[2022-12-22] MEDS: PANTOPRAZOLE 40 MG TABLET PO SCH (06:41)
[2022-12-22] MEDS: GABAPENTIN 300 MG CAP PO SCH ×3 (09:03→20:58)
[2022-12-22] MEDS: SPIRONOLACTONE 25 MG TAB PO SCH (09:03)
[2022-12-22] MEDS: MULTIVITAMINS, THERA 1 EACH TAB PO SCH (09:03)
[2022-12-22] MEDS: predniSONE 10 MG TAB PO SCH (09:03)
[2022-12-22] MEDS: CHOLECALCIFEROL 125 MCG (5000 IU) TABLET PO SCH (09:03)
[2022-12-22] MEDS: THIAMINE 100 MG TAB PO SCH (09:03)
[2022-12-22] MEDS: clonazePAM 0.5 MG TAB PO SCH (09:03)
[2022-12-22] MEDS: FLUoxetine HCL 20 MG CAP PO SCH (09:03)
[2022-12-22] MEDS: CLOTRIMAZOLE 1% CREAM 30 GM TUBE TOPICAL SCH (09:04)
[2022-12-22] MEDS: DONEPEZIL 10 MG TAB PO SCH (09:04)
[2022-12-22] MEDS: TORSEMIDE 20 MG TAB PO SCH (09:04)
[2022-12-22] MEDS: CYANOCOBALAMIN 500 MCG TAB PO SCH (09:04)
[2022-12-22] MEDS: FORMOTEROL FUMARATE 20 MCG/2 ML NEBU INHALATION SCH ×2 (09:35→20:24)
[2022-12-22] MEDS: IPRATROPIUM-ALBUTEROL 3 ML NEB INHALATION SCH ×4 (09:35→20:25)
[2022-12-22] MEDS: BUDESONIDE 1 MG/2 ML NEBU INHALATION SCH ×2 (09:35→20:26)
[2022-12-22 09:41] LABS: ALT 24 U/L (8-44); AST 28 U/L (13-35); Albumin 3.4 d/dL (3.8-4.9); Albumin/Globulin Ratio 1.42 Ratio (1.60-3.17); Alkaline Phosphatase 88 U/L (41-126); Blood Urea Nitrogen 30.5 mg/dL (9.0-27.0); Calcium 9.3 mg/dL (8.7-10.3); Carbon Dioxide 27.6 mmol/L (21.6-31.8); Chloride 100 mmol/L (96-109); Globulin 2.4 d/dL (1.6-3.3); Glucose 112 mg/dL (70-110); Potassium 4.1 mmol/L (3.5-5.5); Sodium 137 mmol/L (135-145); Total Bilirubin 0.2 mg/dL (0.3-1.2); Total Protein 5.8 d/dL (6.2-8.2)
[2022-12-22 09:57] LABS: Basophils # (A) 0.03 X 10*3/uL (0.00-0.10); Basophils % (A) 0.2 %; Eosinophils # (A) 0 X 10*3/uL (0.04-0.35); Eosinophils % (A) 0 %; HCT 35.4 % (37.2-46.3); Lymphocytes # (A) 1.17 X 10*3/uL (0.90-5.00); Lymphocytes % (A) 6.2 %; MCH 29.3 pg (27.0-32.0); MCHC 31.1 d/dL (32.0-37.0); MCV 94.4 FL (80.0-97.0); Mean Platelet Volume 9.5 FL (9.5-12.2); Monocytes # (A) 2.21 X 10*3/uL (0.20-1.00); Monocytes % (A) 11.8 %; NRBC Per 100 WBC 0 X 10*3/uL (0.00-0.01); Neutrophils # (A) 15.21 X 10*3/uL (1.80-7.70); Neutrophils % (A) 81.1 %; Platelet Count 341 X 10*3/uL (140-440); RBC 3.75 X 10*6/uL (4.10-5.20); RDW 15.3 % (11.5-14.5); WBC 18.75 X 10*3/uL (4.50-10.00)
--- NOTE | 2022-12-22 12:10 | P.PN ---
Subjective Progress Note Date: 12/22/22 Principal diagnosis: Hypoxemia. Pulmonary consult dated 12/21/2022. 82-year-old female was recently in the hospital, admitted on December 17, discharged on December 19, back to [facility]. She's readmitted back to the hospital on December 21. Patient is seen in the emergency department, room #3. She's currently on 6 L of oxygen. She is not a particular good historian, and motivated the history is obtained from the documentation by the ER physician. According to his note, the patient was transported from [facility] to the emergency room, by EMS. Apparently she had shortness of breath, and increased work of breathing, and saturations which were in the 70s. The patient was not able to elaborate, and give any additional history. The patient has a history of COPD, rheumatoid arthritis, hyperlipidemia, dementia, and depression. She was a former smoker. White count 14.2, hemoglobin 12.7, hematocrit 38.4, and platelet count 228,000. Sodium 137, potassium 3.4, chlorides 98, CO2 29, anion gap 10, E1 30, creatinine 0.95. Troponin was 0.016 and N-terminal proBNP was 386. Chest x-ray showed cardiomegaly, pulmonary vascular congestion, and small left pleural effusion. Progress note dated 12/22/2022. The patient is seen today in room 459. She's on 3 L of oxygen, and saturations are in the mid 90s. She's not receiving any IV fluids. The patient's is a DO NOT RESUSCITATE patient. Labs today include a white count of 18.75, hemoglobin 11, hematocrit 35.4, and a normal platelet count. Sodium 137, potassium 4.1, chlorides 100, CO2 28, BUN 31, and creatinine 1.0. Chest x-ray could be consistent with some mild fluid overload. The patient's proBNP was only 386. Objective - Vital Signs Vital signs: Vital Signs Temp 97.5 F L 12/22/22 07:12 Pulse 80 12/22/22 09:57 Resp 18 12/22/22 07:12 BP 111/69 12/22/22 07:12 Pulse Ox 94 L 12/22/22 09:59 FiO2 Intake & Output 12/21/22 12/22/22 12/22/22 18:59 06:59 18:59 Output Total 350 Balance -350 Weight 90.718 kg Output: Urine 350 Other: Voiding Method External Catheter Toilet # Voids 1 1 # Bowel Movements 1 - Exam No acute distress, no respiratory distress. The patient is not a particularly good historian. Currently she is on 3 L. HEENT examination is grossly unremarkable. Neck supple. Full range of motion. No adenopathy thyromegaly or neck vein distention. Cardiovascular examination reveals regular rhythm rate. S1-S2 normal. No S3 or S4. No discernible murmur noted. Heart rate is 80 bpm. Lungs reveal scattered rhonchi. No distinct wheezes or crackles. Breath sounds are equal. She does not take deep breaths. Abdomen obese, without tenderness. Extremities are intact. No cyanosis or clubbing. Trace edema. Skin is without rash or lesion. Neurologic examination is difficult to assess. - Labs CBC & Chem 7: 12/22/22 05:49 12/22/22 05:49 Labs: Abnormal Lab Results - Last 24 Hours (Table) 12/22/22 12/22/22 Range/Units 05:49 05:49 WBC 18.75 H (4.50-10.00) X 10*3/uL RBC 3.75 L (4.10-5.20) X 10*6/uL Hgb 11.0 L (12.0-15.0) d/dL Hct 35.4 L (37.2-46.3) % MCHC 31.1 L (32.0-37.0) d/dL RDW 15.3 H (11.5-14.5) % Neutrophils # 15.21 H (1.80-7.70) X 10*3/uL Monocytes # 2.21 H (0.20-1.00) X 10*3/uL Eosinophils # 0 L (0.04-0.35) X 10*3/uL BUN 30.5 H (9.0-27.0) mg/dL Est GFR (CKD-EPI) 57 L (>=60) BUN/Creatinine Ratio 30.50 H (12.00-20.00) Ratio Glucose 112 H (70-110) mg/dL Total Bilirubin 0.2 L (0.3-1.2) mg/dL Total Protein 5.8 L (6.2-8.2) d/dL Albumin 3.4 L (3.8-4.9) d/dL Albumin/Globulin Ratio 1.42 L (1.60-3.17) Ratio Assessment and Plan Assessment: Acute hypoxemic respiratory failure, likely multifactorial, in part related to CHF, and COPD. Recent admission to the hospital, between December 17 and December 19, with a similar clinical scenario. History of COPD, from prior tobacco use. History of rheumatoid arthritis. History of dementia. History of hyperlipidemia. History of hypothyroidism. History of gastroesophageal reflux disease. Morbid obesity. Plan: Plan dated 12/21/2022. The patient is seen in the emergency department, room 3. The patient is not able to provide any additional history. The patient's currently on 6 L of oxygen. Chest x-ray appears also some fluid overload, although, her BNP is not particularly high. The patient will be given breathing treatments, will follow the patient closely. The patient may not be able to go back to [facility], is it appears that she may not be able to care for herself there. Additional recommendations and suggestions are forthcoming. Labs, x-rays, and medications are all reviewed. Plan dated 12/22/2022. The patient was seen in the emergency department yesterday, and today is seen in room 459. She continues on oxygen at 3 L. Yesterday, she was on 6 L. The patient is very poor historian. It's hard to understand exactly what about the patient come to the hospital although, it was documented in the emergency room, that her saturations were low when she was brought in by EMS. The patient may not be able to go back to [facility]. The patient was here recently, and may not be able to take care of herself, in that facility. Labs, x-rays, medications are reviewed. Prognosis is guarded. We will continue to follow. Time with Patient: Less than 30
--- NOTE | 2022-12-22 12:21 | P.PN ---
Subjective Progress Note Date: 12/22/22 Pt has no new complaints today. Ongoing diuresis. O2 saturation improving. Gen: awake, alert HEENT: normocephalic, atraumatic, good hearing acuity, moist mucous membranes Resp: good air exchange, breathing comfortably with no accessory muscle use CVS: good distal perfusion x 4, GI: soft, NTTP, ND : no SPT, no CVAT, costello catheter not present MSK: no pitting edema, no clubbing Neuro: non-focal, moving all extremities Psych: cooperative, euthymic mood Hospital Course: 82-year-old woman with medical history of chronic hypoxic respiratory failure on 2 L of oxygen presented for evaluation of dyspnea. In the emergency room, patient was afebrile, and , heart rate 69, 92% on 6 L of nasal cannula. Patient has leukocytosis to 14.2. Basic metabolic panel shows potassium of 3.4, BUN 30, creatinine of 0.95. Liver function tests show mild elevation of AST to 46. BNP was 386. Troponins 0.016. Coags unremarkable. Chest x-ray shows cardiac megaly with vascular congestion consistent with volume overload. Case was discussed with emergency room and decision was made to admit the patient for further evaluation of hypoxic respiratory failure. Assessment: Acute on chronic hypoxemic respiratory failure Suspected volume overload, diastolic heart failure COPD exacerbation Hypokalemia Plan: Torsemide 20mg daily per cardiology Pulmonology consult, agree with nebulizers Continue prednisone Patient is DO NOT RESUSCITATE Objective - Vital Signs Vital signs: Vital Signs Temp 97.5 F L 12/22/22 07:12 Pulse 80 12/22/22 09:57 Resp 18 12/22/22 07:12 BP 111/69 12/22/22 07:12 Pulse Ox 94 L 12/22/22 09:59 FiO2 Intake & Output 12/21/22 12/22/22 12/22/22 18:59 06:59 18:59 Output Total 350 Balance -350 Weight 90.718 kg Output: Urine 350 Other: Voiding Method External Catheter Toilet # Voids 1 1 # Bowel Movements 1 - Labs CBC & Chem 7: 12/22/22 05:49 12/22/22 05:49 Labs: Abnormal Lab Results - Last 24 Hours (Table) 12/22/22 12/22/22 Range/Units 05:49 05:49 WBC 18.75 H (4.50-10.00) X 10*3/uL RBC 3.75 L (4.10-5.20) X 10*6/uL Hgb 11.0 L (12.0-15.0) d/dL Hct 35.4 L (37.2-46.3) % MCHC 31.1 L (32.0-37.0) d/dL RDW 15.3 H (11.5-14.5) % Neutrophils # 15.21 H (1.80-7.70) X 10*3/uL Monocytes # 2.21 H (0.20-1.00) X 10*3/uL Eosinophils # 0 L (0.04-0.35) X 10*3/uL BUN 30.5 H (9.0-27.0) mg/dL Est GFR (CKD-EPI) 57 L (>=60) BUN/Creatinine Ratio 30.50 H (12.00-20.00) Ratio Glucose 112 H (70-110) mg/dL Total Bilirubin 0.2 L (0.3-1.2) mg/dL Total Protein 5.8 L (6.2-8.2) d/dL Albumin 3.4 L (3.8-4.9) d/dL Albumin/Globulin Ratio 1.42 L (1.60-3.17) Ratio
--- NOTE | 2022-12-22 15:24 | P.PN ---
Subjective Progress Note Date: 12/22/22 Patient is seen and examined at bedside this a.m. Patient denies having any chest pain or shortness of breath. She is laying flat in bed no significant shortness of breath. She is on 2 L oxygen. PHYSICAL EXAMINATION Vital signs reviewed. CONSTITUTIONAL: No apparent distress. Patient has dementia. Morbidly obese HEENT: Head is normocephalic. Pupils are equal, round. Sclerae anicteric. Mucous membranes of the mouth are moist. No JVD. No carotid bruit. CHEST EXAMINATION: Lungs are clear to auscultation. . On 2 L oxygen. Poor inspiratory effort, reduced air entry in bilateral lower lobes HEART EXAMINATION: Regular rate and rhythm. S1, S2 heard. No murmurs, gallops or rub. ABDOMEN: Soft, nontender. Positive bowel sounds. EXTREMITIES: 2+ peripheral pulses, no lower extremity edema and no calf tenderness. NEUROLOGIC EXAMINATION: Patient is awake, alert and oriented x3. ASSESSMENT Acute on chronic hypoxic respiratory failure Mild heart failure exacerbation with preserved ejection fraction Metabolic encephalopathy History of COPD Morbid obesity Dementia PLAN Continue torsemide 20mg daily. Continue Aldactone 25 mg daily Blood pressure 94/59. Systolic pressures are persistently above 110 mmHg, we'll start metoprolol succinate No need to repeat echocardiogram Objective - Vital Signs Vital signs: Vital Signs Temp 97.7 F 12/22/22 13:54 Pulse 74 12/22/22 13:54 Resp 18 12/22/22 13:54 BP 94/59 12/22/22 13:54 Pulse Ox 90 L 12/22/22 13:54 FiO2 Intake & Output 12/21/22 12/22/22 12/22/22 18:59 06:59 18:59 Output Total 350 Balance -350 Weight 90.718 kg Output: Urine 350 Other: Voiding Method External Catheter Toilet # Voids 1 1 2 # Bowel Movements 1 1 - Labs CBC & Chem 7: 12/22/22 05:49 12/22/22 05:49 Labs: Abnormal Lab Results - Last 24 Hours (Table) 12/22/22 12/22/22 Range/Units 05:49 05:49 WBC 18.75 H (4.50-10.00) X 10*3/uL RBC 3.75 L (4.10-5.20) X 10*6/uL Hgb 11.0 L (12.0-15.0) d/dL Hct 35.4 L (37.2-46.3) % MCHC 31.1 L (32.0-37.0) d/dL RDW 15.3 H (11.5-14.5) % Neutrophils # 15.21 H (1.80-7.70) X 10*3/uL Monocytes # 2.21 H (0.20-1.00) X 10*3/uL Eosinophils # 0 L (0.04-0.35) X 10*3/uL BUN 30.5 H (9.0-27.0) mg/dL Est GFR (CKD-EPI) 57 L (>=60) BUN/Creatinine Ratio 30.50 H (12.00-20.00) Ratio Glucose 112 H (70-110) mg/dL Total Bilirubin 0.2 L (0.3-1.2) mg/dL Total Protein 5.8 L (6.2-8.2) d/dL Albumin 3.4 L (3.8-4.9) d/dL Albumin/Globulin Ratio 1.42 L (1.60-3.17) Ratio
[2022-12-22] MEDS: FAMOTIDINE 20 MG TAB PO SCH (17:32)
[2022-12-22] MEDS: MELATONIN 5 MG TABLET PO SCH (20:57)
[2022-12-22] MEDS: ATORVASTATIN 20 MG TAB PO SCH (20:58)
[2022-12-22] MEDS: traZODone HCL 100 MG TAB PO SCH (20:58)
[2022-12-22] MEDS: FOLIC ACID 1 MG TAB PO SCH (20:58)
[2022-12-22] MEDS: clonazePAM 1 MG TAB PO SCH (20:58)
[2022-12-23] MEDS: PANTOPRAZOLE 40 MG TABLET PO SCH (06:37)
[2022-12-23] MEDS: LEVOTHYROXINE 25 MCG TAB PO SCH (06:37)
[2022-12-23] MEDS: IPRATROPIUM-ALBUTEROL 3 ML NEB INHALATION SCH ×2 (08:57→12:08)
[2022-12-23] MEDS: BUDESONIDE 1 MG/2 ML NEBU INHALATION SCH (08:57)
[2022-12-23] MEDS: FORMOTEROL FUMARATE 20 MCG/2 ML NEBU INHALATION SCH (08:57)
[2022-12-23] MEDS: SPIRONOLACTONE 25 MG TAB PO SCH (09:43)
[2022-12-23] MEDS: predniSONE 10 MG TAB PO SCH (09:43)
[2022-12-23] MEDS: clonazePAM 0.5 MG TAB PO SCH (09:43)
[2022-12-23] MEDS: GABAPENTIN 300 MG CAP PO SCH (09:43)
[2022-12-23] MEDS: DONEPEZIL 10 MG TAB PO SCH (09:43)
[2022-12-23] MEDS: FLUoxetine HCL 20 MG CAP PO SCH (09:43)
[2022-12-23] MEDS: THIAMINE 100 MG TAB PO SCH (09:43)
[2022-12-23] MEDS: CHOLECALCIFEROL 125 MCG (5000 IU) TABLET PO SCH (09:43)
[2022-12-23] MEDS: CYANOCOBALAMIN 500 MCG TAB PO SCH (09:43)
[2022-12-23] MEDS: FLUTICASONE 50MCG/SPRAY NASAL 16GM EA NOSTRIL SCH (09:44)
[2022-12-23] MEDS: CLOTRIMAZOLE 1% CREAM 30 GM TUBE TOPICAL SCH (09:44)
[2022-12-23] MEDS: MULTIVITAMINS, THERA 1 EACH TAB PO SCH (09:44)
[2022-12-23] MEDS: TORSEMIDE 20 MG TAB PO SCH (09:44)
--- NOTE | 2022-12-23 11:04 | P.PN ---
Subjective HISTORY OF PRESENT ILLNESS: This is an 82-year-old female who is admitted to the hospital secondary to COPD exacerbation and CHF exacerbation. Patient examined this morning at the bedside. She is receiving a breathing treatment at the time of examination. She denies any chest pain or pressure. She denies any shortness of breath. She is receiving oral diuretics. Echocardiogram performed revealed ejection fraction 55-60%. Patient's blood pressure is stable with a systolic in the 120s. PHYSICAL EXAM: VITAL SIGNS: Reviewed. GENERAL: Well-developed in no acute distress. NECK: Supple. No JVD or thyromegaly LUNGS: Respirations even and unlabored. Lungs essentially clear to auscultation bilaterally. HEART: Regular rate and rhythm. S1 and S2 heard. EXTREMITIES: Normal range of motion. No clubbing or cyanosis. Peripheral pulses intact. No lower extremity edema ASSESSMENT: Shortness of breath Acute on chronic hypoxic respiratory failure COPD exacerbation Mild heart failure exacerbation with preserved EF Metabolic encephalopathy Dementia PLAN: Patient is currently on oral diuretics with no complaints of shortness of breath. Patient is stable from a cardiac standpoint. No further inpatient recommendations from a cardiology perspective. We will sign off. Please reconsult if needed. Nurse practitioner note has been reviewed by physician. Signing provider agrees with the documented findings, assessment, and plan of care. Objective - Vital Signs Vital signs: Vital Signs Temp 97.9 F 12/23/22 07:07 Pulse 62 12/23/22 09:18 Resp 20 12/23/22 07:07 BP 119/53 12/23/22 07:07 Pulse Ox 92 L 12/23/22 09:47 FiO2 Intake & Output 12/22/22 12/23/22 12/23/22 18:59 06:59 18:59 Other: Voiding Method Toilet Toilet # Voids 3 2 1 # Bowel Movements 1 1 - Labs CBC & Chem 7: 12/22/22 05:49 12/22/22 05:49
--- NOTE | 2022-12-23 13:40 | P.DS ---
Providers Date of admission: 12/21/22 07:18 Expected date of discharge: 12/23/22 Attending physician: Jessica Santana MD Consults: 12/21/22 07:18 Consult Physician Routine Consulting Provider: Gerson Bar Consult Reason/Comments: copd Do you want consulting provider notified?: Yes Consult Physician Routine Consulting Provider: Nikia Calixto Consult Reason/Comments: chf Do you want consulting provider notified?: Yes Primary care physician: Stated None Hospital Course: Assessment: Acute on chronic hypoxemic respiratory failure Suspected volume overload, diastolic heart failure COPD exacerbation Hypokalemia Hospital Course: 82-year-old woman with medical history of chronic hypoxic respiratory failure on 2 L of oxygen presented for evaluation of dyspnea. In the emergency room, patient was afebrile, and , heart rate 69, 92% on 6 L of nasal cannula. Patient has leukocytosis to 14.2. Basic metabolic panel shows potassium of 3.4, BUN 30, creatinine of 0.95. Liver function tests show mild elevation of AST to 46. BNP was 386. Troponins 0.016. Coags unremarkable. Chest x-ray shows cardiac megaly with vascular congestion consistent with volume overload. Case was discussed with emergency room and decision was made to admit the patient for further evaluation of hypoxic respiratory failure. Pt was started on IV diuretics, and seen by cardiology for diastolic heart failure. Also started on steroids, nebulizers, and seen by pulmonology. Pt improved to her baseline respiratory status after day 2 of hospitalization. She was transitioned to PO torsemide and PO prednisone and discharged home to [facility]. I spent 40 minutes coordinating this discharge on 12/23 Gen: awake, alert HEENT: normocephalic, atraumatic, good hearing acuity, moist mucous membranes Resp: good air exchange, breathing comfortably with no accessory muscle use CVS: good distal perfusion x 4, GI: soft, NTTP, ND : no SPT, no CVAT, costello catheter not present MSK: no pitting edema, no clubbing Neuro: non-focal, moving all extremities Psych: cooperative, euthymic mood Patient Condition at Discharge: Fair Plan - Discharge Summary Discharge Rx Participant: No New Discharge Prescriptions: New Spironolactone [Aldactone] 25 mg PO DAILY #30 tab Torsemide [Demadex] 20 mg PO DAILY #30 tab predniSONE 30 mg PO DAILY #9 tab Continue Loperamide [Imodium] 2 mg PO QID PRN PRN Reason: Diarrhea Cholecalciferol [Vitamin D3 (125 Mcg = 5000 Iu)] 125 mcg PO DAILY Thiamine [Vitamin B-1] 100 mg PO DAILY traZODone HCL 150 mg PO HS Pantoprazole Sodium [Protonix] 40 mg PO DAILY Multivitamins, Thera [Multivitamin (formulary)] 1 tab PO DAILY Methotrexate/Pf [Reditrex 25 mg/ml Syringe] 15 mg SQ WE Melatonin 10 mg PO HS Levothyroxine Sodium [Synthroid] 25 mcg PO DAILY Gabapentin [Neurontin] 300 mg PO TID FLUoxetine HCL [PROzac] 40 mg PO DAILY clonazePAM [KlonoPIN] 1 mg PO HS Ciclopirox Olamine [Loprox 0.77% cream] 1 applic TOPICAL DAILY Ipratropium-Albuterol Nebulize [Duoneb 0.5 mg-3 mg/3 ml Soln] 3 ml INHALATION RT-QID rOPINIRole HCL [Requip] 1 mg PO HS PRN PRN Reason: restless legs Acetaminophen Tab [Tylenol] 500 mg PO Q6HR PRN PRN Reason: Pain Or Fever > 100.5 Cyanocobalamin (Vitamin B-12) [Vitamin B-12] 1,000 mcg PO DAILY Rosuvastatin [Crestor] 10 mg PO HS Budesonide-Formot 160-4.5 Mcg [Symbicort 160-4.5 Mcg Inhaler] 2 puff INHALATION RT-BID Rivastigmine Tartrate [Exelon] 3 mg PO BID Folic Acid 1 mg PO HS Fluticasone Nasal [place] [Flonase Nasal [place]] 1 spr EA NOSTRIL BID Famotidine [Pepcid] 20 mg PO W/SUPPER clonazePAM [KlonoPIN] 0.5 mg PO DAILY Discontinued Triamterene/Hydrochlorothiazid [Maxzide 37.5-25] 1 tab PO DAILY Furosemide [Lasix] 20 mg PO DIRECTED Cetirizine HCl [Zyrtec] 10 mg PO HS Discharge Medication List Acetaminophen Tab [Tylenol] 500 mg PO Q6HR PRN 12/17/22 [History] Budesonide-Formot 160-4.5 Mcg [Symbicort 160-4.5 Mcg Inhaler] 2 puff INHALATION RT-BID 12/17/22 [History] Cholecalciferol [Vitamin D3 (125 Mcg = 5000 Iu)] 125 mcg PO DAILY 12/17/22 [History] Ciclopirox Olamine [Loprox 0.77% cream] 1 applic TOPICAL DAILY 12/17/22 [History] Cyanocobalamin (Vitamin B-12) [Vitamin B-12] 1,000 mcg PO DAILY 12/17/22 [History] FLUoxetine HCL [PROzac] 40 mg PO DAILY 12/17/22 [History] Famotidine [Pepcid] 20 mg PO W/SUPPER 12/17/22 [History] Fluticasone Nasal [place] [Flonase Nasal [place]] 1 spr EA NOSTRIL BID 12/17/22 [History] Folic Acid 1 mg PO HS 12/17/22 [History] Gabapentin [Neurontin] 300 mg PO TID 12/17/22 [History] Ipratropium-Albuterol Nebulize [Duoneb 0.5 mg-3 mg/3 ml Soln] 3 ml INHALATION RT-QID 12/17/22 [History] Levothyroxine Sodium [Synthroid] 25 mcg PO DAILY 12/17/22 [History] Loperamide [Imodium] 2 mg PO QID PRN 12/17/22 [History] Melatonin 10 mg PO HS 12/17/22 [History] Methotrexate/Pf [Reditrex 25 mg/ml Syringe] 15 mg SQ WE 12/17/22 [History] Multivitamins, Thera [Multivitamin (formulary)] 1 tab PO DAILY 12/17/22 [History] Pantoprazole Sodium [Protonix] 40 mg PO DAILY 12/17/22 [History] Rivastigmine Tartrate [Exelon] 3 mg PO BID 12/17/22 [History] Rosuvastatin [Crestor] 10 mg PO HS 12/17/22 [History] Thiamine [Vitamin B-1] 100 mg PO DAILY 12/17/22 [History] clonazePAM [KlonoPIN] 0.5 mg PO DAILY 12/17/22 [History] clonazePAM [KlonoPIN] 1 mg PO HS 12/17/22 [History] rOPINIRole HCL [Requip] 1 mg PO HS PRN 12/17/22 [History] traZODone HCL 150 mg PO HS 12/17/22 [History] Spironolactone [Aldactone] 25 mg PO DAILY #30 tab 12/23/22 [Rx] Torsemide [Demadex] 20 mg PO DAILY #30 tab 12/23/22 [Rx] predniSONE 30 mg PO DAILY #9 tab 12/23/22 [Rx] Follow up Appointment(s)/Referral(s): None,Stated [Primary Care Provider] - 1-2 days Discharge Disposition: OTHER INSTITUTION NOT DEFINED
[2022-12-23 14:28] VITALS: BP 94/53; PULSE 71; RESP 16; TEMP 97.3
--- NOTE | 2022-12-23 15:50 | P.PN ---
Subjective Progress Note Date: 12/23/22 82-year-old female was recently in the hospital, admitted on December 17, discharged on December 19, back to [facility]. She's readmitted back to the hospital on December 21. Patient is seen in the emergency department, room #3. She's currently on 6 L of oxygen. She is not a particular good historian, and motivated the history is obtained from the documentation by the ER physician. According to his note, the patient was transported from [facility] to the emergency room, by EMS. Apparently she had shortness of breath, and increased work of breathing, and saturations which were in the 70s. The patient was not able to elaborate, and give any additional history. The patient has a history of COPD, rheumatoid arthritis, hyperlipidemia, dementia, and depression. She was a former smoker. White count 14.2, hemoglobin 12.7, hematocrit 38.4, and platelet count 228,000. Sodium 137, potassium 3.4, chlorides 98, CO2 29, anion gap 10, E1 30, creatinine 0.95. Troponin was 0.016 and N-terminal proBNP was 386. Chest x-ray showed cardiomegaly, pulmonary vascular congestion, and small left pleural effusion. Progress note dated 12/22/2022. The patient is seen today in room 459. She's on 3 L of oxygen, and saturations are in the mid 90s. She's not receiving any IV fluids. The patient's is a DO NOT RESUSCITATE patient. Labs today include a white count of 18.75, hemoglobin 11, hematocrit 35.4, and a normal platelet count. Sodium 137, potassium 4.1, chlorides 100, CO2 28, BUN 31, and creatinine 1.0. Chest x-ray could be consistent with some mild fluid overload. The patient's proBNP was only 386. On today's evaluation of 12/23/2022, the patient is being seen for a follow-up. The patient lives in [facility]. The patient is currently on 2 L of oxygen by nasal cannula. Breathing is comfortable. She is communicating. No signs of any significant respiratory distress. She remains on bronchodilators. She remains on steroids and the patient is currently on a prednisone burst taper. She is also on diuretics with Demadex 20 mg by mouth once a day. No fever. No chills. No other new complaints for now. The white cell count from yesterday was 18.7 with a hemoglobin of 11. BUN is at 30 with a creatinine of 1 and a sodium level is at 137. Troponins were negative and the pro BNP level is nonelevated. The chest x-ray at time of admission shows splenomegaly. There was some mild pulmonary vascular congestion. Objective - Vital Signs Vital signs: Vital Signs Temp 97.9 F 12/23/22 07:07 Pulse 62 12/23/22 09:18 Resp 20 12/23/22 07:07 BP 119/53 12/23/22 07:07 Pulse Ox 92 L 12/23/22 09:47 FiO2 Intake & Output 12/22/22 12/23/22 12/23/22 18:59 06:59 18:59 Other: Voiding Method Toilet Toilet # Voids 3 2 1 # Bowel Movements 1 1 - Exam No acute distress, no respiratory distress. The patient is not a particularly good historian. Currently she is on 2 L. HEENT examination is grossly unremarkable. Neck supple. Full range of motion. No adenopathy thyromegaly or neck vein distention. Cardiovascular examination reveals regular rhythm rate. S1-S2 normal. No S3 or S4. No discernible murmur noted. Lungs reveal scattered rhonchi. No distinct wheezes or crackles. Breath sounds are equal. She does not take deep breaths. Abdomen obese, without tenderness. Extremities are intact. No cyanosis or clubbing. Trace edema. Skin is without rash or lesion. - Labs CBC & Chem 7: 12/22/22 05:49 12/22/22 05:49 Assessment and Plan Plan: Acute hypoxemic respiratory failure, likely multifactorial, in part related to CHF, and COPD. clinically improving and the patient is back to her baseline at 2 L per minute nasal cannula. No evidence of pneumonia. Recent admission to the hospital, between December 17 and December 19, with a similar clinical scenario. History of COPD, from prior tobacco use. History of rheumatoid arthritis. History of dementia. History of hyperlipidemia. History of hypothyroidism. History of gastroesophageal reflux disease. Morbid obesity. Plan: The patient to be discharged home today on a combination of Demadex and Aldactone Continue oxygen therapy Prednisone burst taper DuoNeb nebulizer treatments 4 times a day as needed Resume all medications Discharge today
[2022-12-25] MEDS ORDERED: METHOTREXATE 25 MG/ML SQ SCH (09:00)
== END 2022-12-23 16:08 | disposition other institution (70) | DRG 291 ==
LOC: EC 05:24 → 4SSUR 07:18
PROVIDERS: ADMIT Internal Medicine; ATTEND Internal Medicine
DX: I11.0 Hypertensive heart disease with heart failure (principal); G93.41 Metabolic encephalopathy; J96.21 Acute and chronic respiratory failure with hypoxia; J98.11 Atelectasis; J44.1 Chronic obstructive pulmonary disease with (acute) exacerbation; F03.94 Unspecified dementia, unspecified severity, with anxiety; F03.93 Unspecified dementia, unspecified severity, with mood disturbance; E87.1 Hypo-osmolality and hyponatremia; M06.9 Rheumatoid arthritis, unspecified; Z66 Do not resuscitate; I50.32 Chronic diastolic (congestive) heart failure; D72.829 Elevated white blood cell count, unspecified; K21.9 Gastro-esophageal reflux disease without esophagitis; Z68.31 Body mass index [BMI] 31.0-31.9, adult; Z87.891 Personal history of nicotine dependence; Z79.890 Hormone replacement therapy; Z79.51 Long term (current) use of inhaled steroids; Z79.899 Other long term (current) drug therapy; E87.6 Hypokalemia; Z90.710 Acquired absence of both cervix and uterus; Z99.3 Dependence on wheelchair; I08.0 Rheumatic disorders of both mitral and aortic valves; E78.5 Hyperlipidemia, unspecified; E66.01 Morbid (severe) obesity due to excess calories; E03.9 Hypothyroidism, unspecified; Z88.0 Allergy status to penicillin; Z88.8 Allergy status to other drugs, medicaments and biological substances
CPT/HCPCS: 36415; 71045; 80053; 83735; 83880; 84484; 85025; 85610; 85730; 93005; 94640; 94760; 96361; 96374; 96375; 99291